=== PATIENT | male | born 1955 | race Caucasian/White ===

== ENCOUNTER 2016-07-31 09:59 | Inpatient (IN) | payer MEDICARE, OTHER ==
[~2016-07-31] VITALS: Ht 167.6 cm; Wt 62.4 kg
[~2016-07-31 09:59] MED LIST: AMOXICILLIN 8751 TAB PO; LANCETS MC; LEVEMIR FLEX100 U/ML SQ; NOVLOG SQ; PRILOTC PO; ZESTRIL 20MG TA20 MG PO; [UNRECOGNIZED DRUG - OTHER] SQ
[2016-08-20] VITALS (11 sets, daily range): BP systolic 106–146; BP diastolic 55–93; PULSE 76–91; TEMP 97.4–98.5
[2016-08-20] MEDS ORDERED: INHALER (12:28)
[2016-08-20 12:56] LABS: CALCIUM 9.5 mg/dL (8.4-10.2); CREATININE, serum 0.54 mg/dL (0.66-1.25); POTASSIUM 4.8 mmol/L (3.4-5.0)
[2016-08-21 02:29] VITALS: BP 155/78; PULSE 98; TEMP 98.5
[2016-08-21 04:39] VITALS: BP 144/69; PULSE 88; TEMP 98.2
[2016-08-21 07:45] LABS: HEMATOCRIT 39.6 % (42.0-52.0); HEMOGLOBIN 13.2 g/dl (13.5-18.0)
[2016-08-21 09:49] VITALS: BP 125/65; PULSE 82; TEMP 97.9
[2016-08-21 13:57] VITALS: BP 148/71; PULSE 78; TEMP 97.6
[2016-08-21 17:51] VITALS: BP 142/72; PULSE 80; TEMP 97.4
[2016-08-21 21:32] VITALS: BP 115/57; PULSE 70; TEMP 97.4
[2016-08-22 01:48] VITALS: BP 125/67; PULSE 83; TEMP 97.2
[2016-08-22 04:16] VITALS: BP 158/81; PULSE 87; TEMP 98
[2016-08-22 11:45] VITALS: BP 142/58; PULSE 78; TEMP 98.5
[2016-08-22 15:11] VITALS: BP 154/88; PULSE 80; TEMP 97.7
[2016-08-22 17:40] VITALS: BP 133/59; PULSE 81; TEMP 98.1
[2016-08-22 22:45] VITALS: BP 135/80; PULSE 80; TEMP 97.8
[2016-08-23 05:52] VITALS: BP 160/79; PULSE 85; TEMP 97.9
[2016-08-23 10:28] VITALS: BP 125/70; PULSE 79; TEMP 98
[2016-08-23 14:00] VITALS: BP 106/51; PULSE 80; TEMP 98.4
[2016-08-23 17:55] VITALS: BP 142/70; PULSE 81; TEMP 97.9
[2016-08-23 22:10] VITALS: BP 138/77; PULSE 80; TEMP 97.4
[2016-08-24] MEDS ORDERED: OXYCONTIN 10MG10 MG PO (06:39)
[2016-08-24] MEDS ORDERED: ASPI325T6 PO (06:39)
[2016-08-24] MEDS ORDERED: ROXICODONE 55 MG/TAB PO (06:39)
[2016-08-24 06:55] VITALS: BP 97/69; PULSE 85; TEMP 97.9
[2017-04-17] MEDS ORDERED: SMZ/TMPDS PO (08:59)
[2017-04-17] MEDS ORDERED: TENORMIN 2525 MG/TAB PO (09:00)
[2017-04-17] MEDS ORDERED: ZESTRIL 20MG TA20 MG PO (09:00)
[2017-04-17] MEDS ORDERED: LYRICA 50MG CAP50 MG PO (09:01)
[2017-04-17] MEDS ORDERED: ASPIRIN E.C. 8181 MG PO (09:01)
[2017-04-17] MEDS ORDERED: NOVOLOG 100U100 U/M1 SQ (09:02)
[2017-04-17] MEDS ORDERED: LEVEMIR100 U/ML SQ (09:03)
[2017-04-17] MEDS ORDERED: ZOCOR 40MG40 MG PO (09:14)
== END 2016-08-24 10:00 | disposition home or self-care (01) | DRG 617 ==
LOC: SURG 08-20 07:30 → INPTSU 08-20 10:28 → SURG 08-20 12:30
PROVIDERS: Nurse Anesthetist, Certified Registered; Orthopaedic Surgery Sports Medicine
PROC: 0Y6H0Z1 Detachment at Right Lower Leg, High, Open Approach (ICD-10-PCS; principal; 2016-08-20 14:30)
DX: E11.621 Type 2 diabetes mellitus with foot ulcer (principal); L97.419 Non-pressure chronic ulcer of right heel and midfoot with unspecified severity; M86.171 Other acute osteomyelitis, right ankle and foot; E46 Unspecified protein-calorie malnutrition; E11.65 Type 2 diabetes mellitus with hyperglycemia; E11.42 Type 2 diabetes mellitus with diabetic polyneuropathy; I12.9 Hypertensive chronic kidney disease with stage 1 through stage 4 chronic kidney disease, or unspecified chronic kidney disease; E11.69 Type 2 diabetes mellitus with other specified complication; E11.22 Type 2 diabetes mellitus with diabetic chronic kidney disease; N18.9 Chronic kidney disease, unspecified; I25.10 Atherosclerotic heart disease of native coronary artery without angina pectoris; Z79.4 Long term (current) use of insulin; F17.210 Nicotine dependence, cigarettes, uncomplicated
CPT/HCPCS: J0690; J1170; J1815; J1885; J2250; J2270; J2405; J2704; J2765; J3010; J7030

== ENCOUNTER → 2016-08-05 | Outpatient (CLI) | payer MEDICARE, OTHER ==
[~2016-08-05] MED LIST changes: +ASPI325T6 PO; +ASPIRIN E.C. 8181 MG PO; +INHALER; +LEVEMIR100 U/ML SQ; +LYRICA 50MG CAP50 MG PO; +NOVOLOG 100U100 U/M1 SQ; +OXYCONTIN 10MG10 MG PO; +ROXICODONE 55 MG/TAB PO; +SMZ/TMPDS PO; +TENORMIN 2525 MG/TAB PO; +ZOCOR 40MG40 MG PO
== END ==
LOC: WCC 13:30
DX: E11.621 Type 2 diabetes mellitus with foot ulcer (principal); L97.514 Non-pressure chronic ulcer of other part of right foot with necrosis of bone; M86.171 Other acute osteomyelitis, right ankle and foot; E11.40 Type 2 diabetes mellitus with diabetic neuropathy, unspecified
CPT/HCPCS: 13919; 18867; 27510; 27517; A6197; A6207; A6209; G0463

== ENCOUNTER 2017-04-19 09:25 | Outpatient (RCR) | payer MEDICARE, OTHER ==
[2017-04-19 10:15] VITALS: BP 131/88; PULSE 74; TEMP 98.3
== END 2017-04-19 11:00 | disposition home or self-care (01) ==
LOC: EUO 09:25
DX: L03.116 Cellulitis of left lower limb (principal)

== ENCOUNTER → 2017-04-22 | Outpatient (CLI) | payer MEDICARE, OTHER | LOC: WCC 04-19 09:39 | DX: L02.416 Cutaneous abscess of left lower limb (principal); Z89.511 Acquired absence of right leg below knee; E11.9 Type 2 diabetes mellitus without complications | CPT/HCPCS: 17717; 27517; A6207; A6212; G0463 ==

== ENCOUNTER → 2017-04-27 | Outpatient (CLI) | payer MEDICARE, OTHER | LOC: WCC 09:51 | DX: Z98.890 Other specified postprocedural states (principal); E11.9 Type 2 diabetes mellitus without complications | CPT/HCPCS: 17717; A6212; G0463 ==

== ENCOUNTER → 2017-04-29 | Outpatient (CLI) | payer MEDICARE, OTHER | LOC: WCC 09:20 | DX: L97.929 Non-pressure chronic ulcer of unspecified part of left lower leg with unspecified severity (principal); I87.2 Venous insufficiency (chronic) (peripheral) | CPT/HCPCS: 17717; A6212; G0463 ==

== ENCOUNTER → 2017-05-06 | Outpatient (CLI) | payer MEDICARE, OTHER | LOC: WCC 09:17 | DX: L97.829 Non-pressure chronic ulcer of other part of left lower leg with unspecified severity (principal); I87.2 Venous insufficiency (chronic) (peripheral); Z89.511 Acquired absence of right leg below knee | CPT/HCPCS: 17717; 27517; A6207; A6212; G0463 ==

== ENCOUNTER → 2017-05-12 | Outpatient (CLI) | payer MEDICARE, OTHER | LOC: WCC 05-11 10:05 | DX: L97.929 Non-pressure chronic ulcer of unspecified part of left lower leg with unspecified severity (principal); I87.2 Venous insufficiency (chronic) (peripheral); Z89.511 Acquired absence of right leg below knee | CPT/HCPCS: 17717; A6212; G0463 ==

== ENCOUNTER → 2017-05-19 | Outpatient (CLI) | payer MEDICARE, OTHER | LOC: WCC 13:37 | DX: L97.829 Non-pressure chronic ulcer of other part of left lower leg with unspecified severity (principal); Z89.511 Acquired absence of right leg below knee ==

== ENCOUNTER → 2017-05-21 | Outpatient (CLI) | payer MEDICARE, OTHER | LOC: WCC 13:25 | DX: I87.2 Venous insufficiency (chronic) (peripheral) (principal); L97.829 Non-pressure chronic ulcer of other part of left lower leg with unspecified severity; Z89.511 Acquired absence of right leg below knee ==

== ENCOUNTER 2017-07-15 07:00 | Day surgery (SDC) | payer MEDICARE, OTHER ==
[~2017-07-15] VITALS: Ht 170.2 cm; Wt 56.3 kg
[2017-07-15] VITALS (12 sets, daily range): BP systolic 156–219; BP diastolic 83–106; PULSE 74–108; TEMP 98.2
[2017-07-15] MEDS ORDERED: PRILOSEC 20MG20 MG PO (07:15)
[2017-07-15 07:40] LABS: HEMATOCRIT 42.4 % (42.0-52.0); HEMOGLOBIN 14.2 g/dl (13.5-18.0); MEAN CELL VOLUME 88 fl (80.0-100.0); MEAN CORPUSCULAR HEMOGLOBIN 30 pg (27.0-31.0); MEAN CORPUSCULAR HGB CONC 34 g/dl (33.0-37.0); MEAN PLATELET VOLUME 9.1 fl (7.4-10.4); PLATELET COUNT 279 K/mm3 (130-400); RED BLOOD COUNT 4.82 M/mm3 (4.20-5.60); WHITE BLOOD COUNT 6.1 K/mm3 (4.8-10.8)
[2017-07-15 07:43] LABS: PROTHROMBIN TIME 11.4 SECONDS (9.7-12.8)
[2017-07-15 07:47] LABS: CALCIUM 8.9 mg/dL (8.4-10.2); CREATININE, serum 0.64 mg/dL (0.66-1.25); POTASSIUM 3.7 mmol/L (3.4-5.0)
[2017-07-15] MEDS ORDERED: TENORMIN 2525 MG/TAB PO (08:01)
[2017-07-15] MEDS ORDERED: ZESTRIL 20MG TA20 MG PO (08:02)
[2017-07-15] MEDS ORDERED: LYRICA 50MG CAP50 MG PO (08:02)
== END 2017-07-15 17:00 | disposition home or self-care (01) ==
LOC: COL.CAR 07:00
PROVIDERS: Nurse Anesthetist, Certified Registered; Radiology Diagnostic Radiology
DX: I70.202 Unspecified atherosclerosis of native arteries of extremities, left leg (principal); E11.9 Type 2 diabetes mellitus without complications; I10 Essential (primary) hypertension; F17.210 Nicotine dependence, cigarettes, uncomplicated; Z89.511 Acquired absence of right leg below knee
CPT/HCPCS: J0360; J1644; J2250; J2405; J2704; J3010; J7030; J7040; Q9967

== ENCOUNTER 2017-08-11 10:56 | Emergency (ER) | payer MEDICARE, OTHER ==
[~2017-08-11] VITALS: Ht 170.2 cm; Wt 59.1 kg
[~2017-08-11 10:56] MED LIST changes: +PRILOSEC 20MG20 MG PO
[2017-08-11 10:57] VITALS: TEMP 97.7
[2017-08-11] MEDS ORDERED: PRINIVIL20 MG PO (11:30)
[2017-08-11 11:53] LABS: BASO # 0.1 (0.0-0.2); BASO % 0.8 % (0.0-2.0); EOS % 0.1 % (0-4.0); GRAN # 7.6 (1.4-6.5); GRAN % 88.1 % (42.2-75.2); HEMOGLOBIN 15.4 g/dl (13.5-18.0); LYMPH # 0.7 (1.2-3.4); LYMPH % 7.7 % (20.0-51.0); MEAN CELL VOLUME 87 fl (80.0-100.0); MEAN CORPUSCULAR HEMOGLOBIN 29 pg (27.0-31.0); MEAN CORPUSCULAR HGB CONC 34 g/dl (33.0-37.0); MEAN PLATELET VOLUME 9.3 fl (7.4-10.4); MONO # 0.2 (0.1-0.6); MONO % 2.8 % (1.7-9.3); PLATELET COUNT 350 K/mm3 (130-400); RED BLOOD COUNT 5.27 M/mm3 (4.20-5.60); REDCELL DISTRIBUTION WIDTH-CV 13.6 % (11.5-14.5)
[2017-08-11 12:01] LABS: ALANINE AMINOTRANSFERASE 19 U/L (21-72); ALBUMIN 4.4 gm/dL (3.5-5.0); ALKALINE PHOSPHATASE 102 U/L (50-136); ANION GAP 14 mmol/L (7-16); AST,SGOT 18 U/L (15-37); BILIRUBIN,TOTAL 0.6 mg/dL (0.0-1.0); BLOOD UREA NITROGEN 14 mg/dL (9-20); CALCIUM 9.3 mg/dL (8.4-10.2); CARBON DIOXIDE 24 mmol/L (22-30); CHLORIDE 100 mmol/L (98-107); CREATININE, serum 0.53 mg/dL (0.66-1.25); GLUCOSE 286 mg/dL (74-106); POTASSIUM 3.5 mmol/L (3.4-5.0); SODIUM 138 mmol/L (137-145); TOTAL PROTEIN 7.7 gm/dL (6.4-8.2)
[2017-08-11 12:02] LABS: C-REACTIVE PROTEIN < 0.5 mg/dL (0.0-0.9)
[2017-08-11] MEDS ORDERED: LEVEMIR100 U/ML SQ (12:02)
[2017-08-11 12:10] LABS: TROPONIN-I < 0.012 ng/mL (0.000-0.034)
[2017-08-11 12:27] LABS: COLLECTION METHOD CLEAN CATCH
[2017-08-11 12:36] LABS: MUCOUS Present /lpf; PH 8 (5-8); SQUAMOUS EPITHELIAL None Seen /hpf; URINE APPEARANCE Hazy; URINE BACTERIA Rare /hpf; URINE BILIRUBIN Negative (NEGATIVE); URINE BLOOD Negative (NEGATIVE); URINE COLOR Yellow; URINE GLUCOSE 3+ (NEGATIVE); URINE KETONE 2+ (NEGATIVE); URINE LEUKOCYTE ESTERASE Negative (NEGATIVE); URINE NITRATE Negative (NEGATIVE); URINE PROTEIN(semi-quant) 3+ (NEGATIVE); URINE RBC 20-50 /hpf; URINE UROBILINOGEN Negative (NEGATIVE)
[2017-08-11 15:45] VITALS: BP 180/101; PULSE 105
== END 2017-08-11 15:47 | disposition home or self-care (01) ==
LOC: COL.ER 10:56
PROVIDERS: Physician Assistant
DX: R11.10 Vomiting, unspecified (principal); R10.9 Unspecified abdominal pain; I25.10 Atherosclerotic heart disease of native coronary artery without angina pectoris; I25.2 Old myocardial infarction; I10 Essential (primary) hypertension; E11.40 Type 2 diabetes mellitus with diabetic neuropathy, unspecified; G89.29 Other chronic pain; D64.9 Anemia, unspecified; F17.210 Nicotine dependence, cigarettes, uncomplicated; Z87.442 Personal history of urinary calculi; Z79.4 Long term (current) use of insulin
CPT/HCPCS: J2270; J2405; J7030

== ENCOUNTER 2018-01-03 14:12 | Emergency (ER) | payer MEDICARE, OTHER ==
[~2018-01-03] VITALS: Ht 170.2 cm; Wt 58.6 kg
[~2018-01-03 14:12] MED LIST changes: +PRINIVIL20 MG PO
[2018-01-03 14:22] VITALS: TEMP 97.7
[2018-01-03 15:17] LABS: BASO # 0.1 (0.0-0.2); BASO % 0.5 % (0.0-2.0); GRAN # 9.9 (1.4-6.5); GRAN % 91.2 % (42.2-75.2); HEMATOCRIT 45.8 % (42.0-52.0); HEMOGLOBIN 15.8 g/dl (13.5-18.0); LYMPH # 0.6 (1.2-3.4); LYMPH % 5.4 % (20.0-51.0); MEAN CELL VOLUME 85 fl (80.0-100.0); MEAN CORPUSCULAR HEMOGLOBIN 29 pg (27.0-31.0); MEAN CORPUSCULAR HGB CONC 35 g/dl (33.0-37.0); MEAN PLATELET VOLUME 9.2 fl (7.4-10.4); MONO # 0.3 (0.1-0.6); MONO % 2.6 % (1.7-9.3); PLATELET COUNT 318 K/mm3 (130-400); RED BLOOD COUNT 5.38 M/mm3 (4.20-5.60); REDCELL DISTRIBUTION WIDTH-CV 13.2 % (11.5-14.5)
[2018-01-03 15:19] LABS: PROTHROMBIN TIME 10.8 SECONDS (9.7-12.8)
[2018-01-03 15:24] LABS: ALANINE AMINOTRANSFERASE 14 U/L (21-72); ALBUMIN 3.9 gm/dL (3.5-5.0); ALKALINE PHOSPHATASE 101 U/L (50-136); AMYLASE 125 U/L (30-110); ANION GAP 16 mmol/L (7-16); AST,SGOT 19 U/L (15-37); BILIRUBIN,TOTAL 0.9 mg/dL (0.0-1.0); BLOOD UREA NITROGEN 14 mg/dL (9-20); CALCIUM 9.1 mg/dL (8.4-10.2); CARBON DIOXIDE 25 mmol/L (22-30); CHLORIDE 99 mmol/L (98-107); CREATININE, serum 0.54 mg/dL (0.66-1.25); GLUCOSE 283 mg/dL (74-106); LIPASE 295 U/L (23-300); POTASSIUM 3.6 mmol/L (3.4-5.0); SODIUM 140 mmol/L (137-145); TOTAL PROTEIN 7.6 gm/dL (6.4-8.2)
[2018-01-03 15:35] LABS: TROPONIN-I < 0.012 ng/mL (0.000-0.034)
[2018-01-03 17:17] LABS: COLLECTION METHOD CLEAN CATCH
[2018-01-03 17:40] LABS: MUCOUS Present /lpf; PH 8 (5-8); SQUAMOUS EPITHELIAL None Seen /hpf; URINE APPEARANCE Clear; URINE BACTERIA None Seen /hpf; URINE BILIRUBIN Negative (NEGATIVE); URINE BLOOD 1+ (NEGATIVE); URINE COLOR Yellow; URINE GLUCOSE 3+ (NEGATIVE); URINE KETONE 1+ (NEGATIVE); URINE LEUKOCYTE ESTERASE Negative (NEGATIVE); URINE NITRATE Negative (NEGATIVE); URINE PROTEIN(semi-quant) 3+ (NEGATIVE); URINE UROBILINOGEN Negative (NEGATIVE)
[2018-01-03 18:20] VITALS: BP 165/90; PULSE 88
== END 2018-01-03 18:44 | disposition home or self-care (01) ==
LOC: COL.ER 14:12
PROVIDERS: Emergency Medicine
DX: E11.43 Type 2 diabetes mellitus with diabetic autonomic (poly)neuropathy (principal); K31.84 Gastroparesis; G43.A0 Cyclical vomiting, in migraine, not intractable; I10 Essential (primary) hypertension; Z79.4 Long term (current) use of insulin
CPT/HCPCS: J2270; J2765; J7030

== ENCOUNTER 2018-02-22 08:53 | Emergency (ER) | payer MEDICARE ==
[~2018-02-22] VITALS: Ht 170.2 cm; Wt 56.8 kg
[2018-02-22 09:00] VITALS: TEMP 97.7
[2018-02-22 09:19] LABS: BASO # 0.1 (0.0-0.2); BASO % 0.7 % (0.0-2.0); EOS # 0.1 (0.0-0.7); EOS % 1.3 % (0-4.0); GRAN # 7.7 (1.4-6.5); GRAN % 77.6 % (42.2-75.2); HEMATOCRIT 48.2 % (42.0-52.0); HEMOGLOBIN 16.1 g/dl (13.5-18.0); LYMPH # 1.3 (1.2-3.4); LYMPH % 13.4 % (20.0-51.0); MEAN CELL VOLUME 87 fl (80.0-100.0); MEAN CORPUSCULAR HEMOGLOBIN 29 pg (27.0-31.0); MEAN CORPUSCULAR HGB CONC 33 g/dl (33.0-37.0); MEAN PLATELET VOLUME 8.8 fl (7.4-10.4); MONO # 0.7 (0.1-0.6); MONO % 6.8 % (1.7-9.3); PLATELET COUNT 345 K/mm3 (130-400); RED BLOOD COUNT 5.52 M/mm3 (4.20-5.60); REDCELL DISTRIBUTION WIDTH-CV 13.7 % (11.5-14.5)
[2018-02-22] MEDS ORDERED: PROBIOTIC ACID1 EAC3 PO (09:29)
[2018-02-22] MEDS ORDERED: BP MED (09:29)
[2018-02-22 09:33] LABS: ALANINE AMINOTRANSFERASE 16 U/L (21-72); ALBUMIN 4.5 gm/dL (3.5-5.0); ALKALINE PHOSPHATASE 101 U/L (50-136); ANION GAP 12 mmol/L (7-16); AST,SGOT 24 U/L (15-37); BILIRUBIN,TOTAL 0.7 mg/dL (0.0-1.0); BLOOD UREA NITROGEN 25 mg/dL (9-20); CALCIUM 9.5 mg/dL (8.4-10.2); CARBON DIOXIDE 27 mmol/L (22-30); CHLORIDE 99 mmol/L (98-107); CREATININE, serum 0.85 mg/dL (0.66-1.25); GLUCOSE 212 mg/dL (74-106); LIPASE 85 U/L (23-300); POTASSIUM 3.7 mmol/L (3.4-5.0); SODIUM 139 mmol/L (137-145); TOTAL PROTEIN 7.9 gm/dL (6.4-8.2)
[2018-02-22 09:39] LABS: C-REACTIVE PROTEIN < 0.5 mg/dL (0.0-0.9)
[2018-02-22 09:41] LABS: TROPONIN-I < 0.012 ng/mL (0.000-0.034)
[2018-02-22] MEDS ORDERED: ZOFRAN ODT4 MG PO (11:19)
[2018-02-22 11:32] VITALS: BP 213/110; PULSE 90
== END 2018-02-22 11:35 | disposition home or self-care (01) ==
LOC: COL.ER 08:53
PROVIDERS: Physician Assistant
DX: E11.43 Type 2 diabetes mellitus with diabetic autonomic (poly)neuropathy (principal); K31.84 Gastroparesis; I10 Essential (primary) hypertension; I25.2 Old myocardial infarction; F17.210 Nicotine dependence, cigarettes, uncomplicated; F12.90 Cannabis use, unspecified, uncomplicated; Z79.4 Long term (current) use of insulin
CPT/HCPCS: C9113; J2270; J2405; J2765; J7030

== ENCOUNTER 2018-09-07 17:22 | Emergency (ER) | payer MEDICARE ==
[~2018-09-07] VITALS: Ht 170.2 cm; Wt 56.8 kg
[~2018-09-07 17:22] MED LIST changes: +BP MED; +PROBIOTIC ACID1 EAC3 PO; +ZOFRAN ODT4 MG PO
[2018-09-07 17:28] VITALS: TEMP 97.8
[2018-09-07 18:18] LABS: BASO # 0.1 (0.0-0.2); BASO % 0.4 % (0.0-2.0); GRAN # 12.6 (1.4-6.5); GRAN % 91.8 % (42.2-75.2); HEMATOCRIT 46.6 % (42.0-52.0); HEMOGLOBIN 15.8 g/dl (13.5-18.0); LYMPH # 0.6 (1.2-3.4); LYMPH % 4.4 % (20.0-51.0); MEAN CELL VOLUME 86 fl (80.0-100.0); MEAN CORPUSCULAR HEMOGLOBIN 29 pg (27.0-31.0); MEAN CORPUSCULAR HGB CONC 34 g/dl (33.0-37.0); MEAN PLATELET VOLUME 9.5 fl (7.4-10.4); MONO # 0.4 (0.1-0.6); MONO % 3.1 % (1.7-9.3); PLATELET COUNT 336 K/mm3 (130-400); RED BLOOD COUNT 5.41 M/mm3 (4.20-5.60); REDCELL DISTRIBUTION WIDTH-CV 13.5 % (11.5-14.5)
[2018-09-07 18:29] LABS: ALANINE AMINOTRANSFERASE 7 U/L (21-72); ALBUMIN 4.2 gm/dL (3.5-5.0); ALKALINE PHOSPHATASE 113 U/L (50-136); ANION GAP 14 mmol/L (7-16); AST,SGOT 25 U/L (15-37); BLOOD UREA NITROGEN 11 mg/dL (9-20); CALCIUM 9.1 mg/dL (8.4-10.2); CARBON DIOXIDE 22 mmol/L (22-30); CHLORIDE 99 mmol/L (98-107); CREATININE, serum 0.65 mg/dL (0.66-1.25); GLUCOSE 336 mg/dL (74-106); LIPASE 157 U/L (23-300); POTASSIUM 3.7 mmol/L (3.4-5.0); SODIUM 135 mmol/L (137-145); TOTAL PROTEIN 7.5 gm/dL (6.4-8.2)
[2018-09-07 18:30] LABS: C-REACTIVE PROTEIN < 0.5 mg/dL (0.0-0.9)
[2018-09-07 18:40] LABS: TROPONIN-I < 0.012 ng/mL (0.000-0.035)
[2018-09-07 20:06] LABS: COLLECTION METHOD CLEAN CATCH
[2018-09-07 20:23] LABS: MUCOUS Present /lpf; PH 7 (5-8); SQUAMOUS EPITHELIAL None Seen /hpf; URINE APPEARANCE Clear; URINE BACTERIA None Seen /hpf; URINE BILIRUBIN Negative (NEGATIVE); URINE BLOOD 2+ (NEGATIVE); URINE COLOR Yellow; URINE GLUCOSE 3+ (NEGATIVE); URINE KETONE 1+ (NEGATIVE); URINE LEUKOCYTE ESTERASE Negative (NEGATIVE); URINE NITRATE Negative (NEGATIVE); URINE PROTEIN(semi-quant) 3+ (NEGATIVE); URINE RBC 20-50 /hpf; URINE UROBILINOGEN Negative (NEGATIVE)
[2018-09-07 21:27] VITALS: BP 138/64; PULSE 93
== END 2018-09-07 22:18 | disposition home or self-care (01) ==
LOC: COL.ER 17:22
PROVIDERS: Emergency Medicine
DX: E11.43 Type 2 diabetes mellitus with diabetic autonomic (poly)neuropathy (principal); K31.84 Gastroparesis; I10 Essential (primary) hypertension; I25.10 Atherosclerotic heart disease of native coronary artery without angina pectoris; F17.210 Nicotine dependence, cigarettes, uncomplicated; Z79.4 Long term (current) use of insulin; Z89.511 Acquired absence of right leg below knee
CPT/HCPCS: J1815; J2270; J2405; J2765; J7030; Q9967

== ENCOUNTER 2018-10-19 10:12 | Inpatient (IN) | payer MEDICARE ==
[~2018-10-19] VITALS: Ht 170.2 cm; Wt 63.2 kg
[2018-10-19] VITALS (639 sets, daily range): BP systolic 102–154; BP diastolic 64–86; PULSE 86–100; TEMP 97.4–98.7; O2SAT 68–100
[2018-10-19 11:09] LABS: HEMATOCRIT 45.8 % (42.0-52.0); HEMOGLOBIN 15.5 g/dl (13.5-18.0); MEAN CELL VOLUME 86 fl (80.0-100.0); MEAN CORPUSCULAR HEMOGLOBIN 29 pg (27.0-31.0); MEAN CORPUSCULAR HGB CONC 34 g/dl (33.0-37.0); PLATELET COUNT 320 K/mm3 (130-400); RED BLOOD COUNT 5.32 M/mm3 (4.20-5.60); REDCELL DISTRIBUTION WIDTH-CV 13.6 % (11.5-14.5)
[2018-10-19 11:17] LABS: ALBUMIN 4.2 gm/dL (3.5-5.0); BILIRUBIN,TOTAL 0.6 mg/dL (0.0-1.0); CALCIUM 9.1 mg/dL (8.4-10.2); CREATININE, serum 0.73 mg/dL (0.66-1.25); MAGNESIUM 1.7 mg/dL (1.6-2.3); PHOSPHOROUS 3.4 mg/dL (2.5-4.5); POTASSIUM 3.7 mmol/L (3.4-5.0); TOTAL PROTEIN 7.6 gm/dL (6.4-8.2)
[2018-10-19 11:34] LABS: BAND 19 % (0-10); LYMPHOCYTE 2 % (20.0-51.0); NEUTROPHILS 77 % (42.0-75.2); PLATELET ESTIMATE NORMAL (NORMAL)
[2018-10-19 11:37] LABS: TROPONIN-I 0.067 ng/mL (0.000-0.035)
[2018-10-19 11:46] LABS: TSH w REFLEX 1.83 uIU/mL (0.465-4.680)
--- NOTE | 2018-10-19 13:20 | NUR ---
Patient admitted to ICU#5 via stretcher from ER. Assessment complete, patient denies pain at this time, call light within reach.
--- NOTE | 2018-10-19 19:30 | NUR ---
Bedside report received from HERNAN Faith.
--- NOTE | 2018-10-19 20:00 | NUR ---
Bedside report given to HERNAN Huston.
--- NOTE | 2018-10-19 20:00 | NUR ---
Assessment complete. Patient is resting in bed at this time. During assessment found IV in right hand had been pulled out and the catheter was bent on the skin under the dressing. Attempted new IV at multiple sites, 4 attempts. HERNAN Willis placed IV in left hand. Patient tolerated well. Assessment also revealed a small amount of +1 pitting edema around the foot/ankle of the left leg. Patient has complaints of 5/10 pain that is aching and generalized, but mostly in his legs. Patient does not want medication for it at this time. Says this is a chronic issue, but if it gets worse says he may need something for it. Let patient know to call me should his pain get worse. Confirmed understanding. Vitals are stable and WNL. No further needs at this time. WIll continue to monitor. Call light within reach.
[2018-10-20] VITALS (1360 sets, daily range): BP systolic 152–190; BP diastolic 76–96; PULSE 57–67; TEMP 97.6–98.6; O2SAT 51–100
--- NOTE | 2018-10-20 | NUR ---
Patient resting in bed watching tv. Patient states that his pain remains the same at 5/10 and generalized. Still does not want medication at this time. Patient's vitals remain stable. Patient has no further needs at this time. Will continue to monitor. Call light within reach.
--- NOTE | 2018-10-20 01:00 | NUR ---
Patient complaining of increased pain at this time. Requesting medication for it "before it gets worse". Morphine to be provided.
--- NOTE | 2018-10-20 01:30 | NUR ---
Rechecked patient's pain level after morphine was given. Patient states "I'm good. I got nothin right now. No pain. I'm feeling good and relaxed." No further needs. Will continue to monitor.
--- NOTE | 2018-10-20 04:00 | NUR ---
Patient awake and resting in bed. Patient rates pain 0/10, but says that he has some general soreness from laying in bed. He will not rate it. Says otherwise he feels good. Vitals remain stable with BP in 150-160's systolic. No further needs at this time. Will continue to monitor. Call light within reach.
[2018-10-20 05:50] LABS: BASO % 0.6 % (0.0-2.0); EOS # 0.1 (0.0-0.7); EOS % 1.4 % (0-4.0); GRAN # 3.2 (1.4-6.5); GRAN % 61.6 % (42.2-75.2); HEMATOCRIT 41.1 % (42.0-52.0); LYMPH # 1.1 (1.2-3.4); LYMPH % 20.7 % (20.0-51.0); MEAN CELL VOLUME 89 fl (80.0-100.0); MEAN CORPUSCULAR HEMOGLOBIN 29 pg (27.0-31.0); MEAN CORPUSCULAR HGB CONC 33 g/dl (33.0-37.0); MEAN PLATELET VOLUME 8.8 fl (7.4-10.4); MONO # 0.8 (0.1-0.6); MONO % 15.5 % (1.7-9.3); PLATELET COUNT 264 K/mm3 (130-400); RED BLOOD COUNT 4.63 M/mm3 (4.20-5.60)
[2018-10-20 05:55] LABS: HEMOGLOBIN 13.4 g/dl (13.5-18.0)
[2018-10-20 06:06] LABS: CALCIUM 7.9 mg/dL (8.4-10.2); CHOLESTEROL RISK RATIO 3.6; POTASSIUM 3.9 mmol/L (3.4-5.0)
[2018-10-20 06:20] LABS: TROPONIN-I 0.133 ng/mL (0.000-0.035)
--- NOTE | 2018-10-20 07:37 | NUR ---
Bedside report given to HERNAN Anderson
--- NOTE | 2018-10-20 07:40 | NUR ---
Report received from HERNAN Huston. Pt had sips of decaf coffee before day shift came in. Pt NPO at this time. Waiting for Dr to see pt to discuss plan of care.
--- NOTE | 2018-10-20 07:51 | NUR ---
IHSAN SCAN STRESS TEST CANCELLED PER PROTOCOL PATIENT HAD CAFFIENE THIS AM, DR LOVELACE AND DR MARQUEZ NOTIFIED OF CAFFIENE AND INCREASED TROPONINS OVERNIGHT.
--- NOTE | 2018-10-20 08:00 | NUR ---
Assessment completed. Pt awake, in bed. States has has some neuropathy pain on his left leg. Unable to give me a number on the pain scale. Discussed NPO status until Dr sees pt today and monitoring BP. Pt verbalizes understanding.
--- NOTE | 2018-10-20 08:30 | NUR ---
HERNAN Mendosa with Dr Nicole, at bedside. Updated on pt status. Echo completed and waiting for results. HERNAN Mendosa will up date and let me know the plan of care for today.
--- NOTE | 2018-10-20 10:30 | NUR ---
KODI Sanz with Dr Upton notified of SBP 190s. Will talk with Dr Upton and let me know of any changes in orders.
--- NOTE | 2018-10-20 13:30 | NUR ---
Anesthesia at bedside for JORI and cardioversion. Suction and oxymask set up. Crash cart placed in room and pt connected to defibrillator. Dr Luna at bedside. time out completed with Anesthesia and Dr luna for JORI and cardioversion.
--- NOTE | 2018-10-20 13:50 | NUR ---
JORI completed. Pt cardioverted w2ith 100J at 1347 and again with 200J at 1349. HR A paced on monitor.
--- NOTE | 2018-10-20 14:42 | NUR ---
SW attended clinical rounds and met with patient about discharge. Patient reports he plans to return home after discharge. Patient lives with his in [place]. He uses either the [facility] or [facility] for primary care. Patient obtains prescriptions from [facility] or the [place]. [facility] but does not currently have services. Patient reports if he needs home health services, he can call the [facility] to arrange those. Patient reports he uses a manual and motorized wheelchair for mobility but no other DME is reported. Patient does not have a DPOA but is interested in completing one. He reports his son will be here later today and he would like to speak with him about DPOA before signing. SW will return when patient is ready to sign. SW does not anticipate any discharge needs but will continue to follow.
--- NOTE | 2018-10-20 15:12 | NUR ---
HERNAN Mendosa with DR Nicole states okay with pt to have clear liquids tomorrow morning. No order for cardiac cath at this time.
--- NOTE | 2018-10-20 16:30 | NUR ---
Pt in bed, taking a nap. Will monitor.
--- NOTE | 2018-10-20 19:35 | NUR ---
Report given to date night sitter RN.
[2018-10-21] VITALS (950 sets, daily range): BP systolic 157–1451; BP diastolic 78–83; PULSE 63–81; TEMP 98.1–98.8; O2SAT 94–100
[2018-10-21 06:21] LABS: BASO % 0.7 % (0.0-2.0); EOS # 0.1 (0.0-0.7); EOS % 1.5 % (0-4.0); GRAN # 4.2 (1.4-6.5); GRAN % 71.2 % (42.2-75.2); HEMATOCRIT 41.3 % (42.0-52.0); HEMOGLOBIN 13.8 g/dl (13.5-18.0); LYMPH # 0.8 (1.2-3.4); LYMPH % 14.2 % (20.0-51.0); MEAN CELL VOLUME 87 fl (80.0-100.0); MEAN CORPUSCULAR HEMOGLOBIN 29 pg (27.0-31.0); MEAN CORPUSCULAR HGB CONC 33 g/dl (33.0-37.0); MONO # 0.7 (0.1-0.6); MONO % 12.2 % (1.7-9.3); PLATELET COUNT 255 K/mm3 (130-400); RED BLOOD COUNT 4.74 M/mm3 (4.20-5.60); REDCELL DISTRIBUTION WIDTH-CV 13.7 % (11.5-14.5)
[2018-10-21 06:26] LABS: CREATININE, serum 0.72 mg/dL (0.66-1.25); POTASSIUM 3.4 mmol/L (3.4-5.0)
--- NOTE | 2018-10-21 07:30 | NUR ---
Bedside report received from HERNAN Soares. Care of patient assumed at this time.
--- NOTE | 2018-10-21 08:45 | NUR ---
Patient assessment complete. Patient resting in bed, denies chest pain or shortness of breath. Patient's left leg is cool and pulses are 1+. Patient states that is a typical finding. Patient remains in contact precautions. Will continue to monitor.
--- NOTE | 2018-10-21 10:36 | NUR ---
SW followed up with patient and son, Hudson, about completing a DPOA. Patient appointed his son. Patient signed and SW and nurse witnessed signature. Patient was given the original and 4 extra copies. SW also placed a copy on the chart. SW also mentioned that PT might come meet with him and give recommendations. SW asked nurse if PT can be consulted.
--- NOTE | 2018-10-21 12:00 | NUR ---
Patient resting. No acute changes. Blood pressure remains stable. Will continue to monitor.
[2018-10-21] MEDS ORDERED: NORVASC 10MG10 MG PO (12:42)
[2018-10-21] MEDS ORDERED: COREG12.5 MG PO (12:42)
[2018-10-21] MEDS ORDERED: ASPIRIN E.C. 8181 MG PO (12:42)
[2018-10-21] MEDS ORDERED: LIPITOR 40MG TA40 MG PO (12:42)
[2018-10-21] MEDS ORDERED: ULTRAM 50MG TAB50 MG PO (12:44)
[2018-10-21] MEDS ORDERED: NEURONTIN100 MG/CAP PO (12:50)
--- NOTE | 2018-10-21 16:05 | NUR ---
All discharge paperwork discussed with patient and son. Patient verbalizes understanding and agreement to all instructions. Patient wheeled to exit in own wheelchair. Son accompanies patient. All patient belongings accompany patient to exit.
== END 2018-10-21 15:57 | disposition home or self-care (01) | DRG 281 ==
LOC: COL.ER 10:12 → ICU 11:56
PROVIDERS: Emergency Medicine; Physician Assistant; ADMIT Family Medicine
DX: I16.1 Hypertensive emergency (principal); I21.4 Non-ST elevation (NSTEMI) myocardial infarction; E87.2 Acidosis; Z66 Do not resuscitate; I10 Essential (primary) hypertension; E11.40 Type 2 diabetes mellitus with diabetic neuropathy, unspecified; I25.10 Atherosclerotic heart disease of native coronary artery without angina pectoris; E11.43 Type 2 diabetes mellitus with diabetic autonomic (poly)neuropathy; K31.84 Gastroparesis; Z79.4 Long term (current) use of insulin; I73.9 Peripheral vascular disease, unspecified; F17.210 Nicotine dependence, cigarettes, uncomplicated; F12.10 Cannabis abuse, uncomplicated; E11.65 Type 2 diabetes mellitus with hyperglycemia; Z89.511 Acquired absence of right leg below knee; E87.6 Hypokalemia
CPT/HCPCS: 99223-AI; 99233-AI; 99239; J0360; J1650; J1815; J2270; J2405; J7030; J7050

== ENCOUNTER 2019-04-23 15:53 | Inpatient (IN) | payer MEDICARE ==
[2019-04-23] VITALS (350 sets, daily range): BP systolic 156–171; BP diastolic 81–86; PULSE 101–107; TEMP 98–98.3; O2SAT 82–100
[~2019-04-23] VITALS: Ht 175.3 cm; Wt 69.8 kg
[~2019-04-23 15:53] MED LIST changes: +COREG12.5 MG PO; +LIPITOR 40MG TA40 MG PO; +NEURONTIN100 MG/CAP PO; +NORVASC 10MG10 MG PO; +ULTRAM 50MG TAB50 MG PO
[2019-04-23 16:30] LABS: BASO # 0.1 (0.0-0.2); BASO % 0.7 % (0.0-2.0); EOS # 0.1 (0.0-0.7); EOS % 0.4 % (0-4.0); GRAN # 11.7 (1.4-6.5); GRAN % 86.4 % (42.2-75.2); HEMATOCRIT 43.1 % (42.0-52.0); HEMOGLOBIN 14.6 g/dl (13.5-18.0); LYMPH % 7.2 % (20.0-51.0); MEAN CELL VOLUME 87 fl (80.0-100.0); MEAN CORPUSCULAR HEMOGLOBIN 29 pg (27.0-31.0); MEAN CORPUSCULAR HGB CONC 34 g/dl (33.0-37.0); MEAN PLATELET VOLUME 9.3 fl (7.4-10.4); MONO # 0.7 (0.1-0.6); MONO % 4.9 % (1.7-9.3); PLATELET COUNT 318 K/mm3 (130-400); RED BLOOD COUNT 4.96 M/mm3 (4.20-5.60); REDCELL DISTRIBUTION WIDTH-CV 13.9 % (11.5-14.5)
[2019-04-23 16:40] LABS: INR 0.9 (0.8-3.0); PROTHROMBIN TIME 10.2 SECONDS (9.7-12.8)
[2019-04-23 16:43] LABS: ARTERIAL BLD GAS O2 SATURATION 95.1 % (92-100); ARTERIAL BLD GAS TCO2 CT 26.4; ARTERIAL BLOOD GAS BASE EXCESS 2.7 (-2-2); ARTERIAL BLOOD GAS HCO3 25.3 meq/L (22-26); ARTERIAL BLOOD GAS PCO2 33.1 mmHg (35-45)
[2019-04-23 16:49] LABS: ALANINE AMINOTRANSFERASE < 6 U/L (21-72); ALBUMIN 4.7 gm/dL (3.5-5.0); ALKALINE PHOSPHATASE 117 U/L (50-136); ANION GAP 13 mmol/L (7-16); AST,SGOT 28 U/L (15-37); BILIRUBIN,TOTAL 0.7 mg/dL (0.0-1.0); BLOOD UREA NITROGEN 20 mg/dL (9-20); C-REACTIVE PROTEIN < 0.5 mg/dL (0.0-0.9); CARBON DIOXIDE 27 mmol/L (22-30); CHLORIDE 102 mmol/L (98-107); CREATININE, serum 0.83 (0.66-1.25); GLUCOSE 206 mg/dL (74-106); LIPASE 168 U/L (23-300); POTASSIUM 3.5 mmol/L (3.4-5.0); SODIUM 142 mmol/L (137-145); TOTAL PROTEIN 8.2 gm/dL (6.4-8.2)
[2019-04-23 16:51] LABS: ACETONE,SERUM NEGATIVE
[2019-04-23 16:58] LABS: TROPONIN-I < 0.012 ng/mL (0.000-0.035)
--- NOTE | 2019-04-23 18:45 | NUR ---
Pt on 2.5 mg/hr of cardene per ER.
--- NOTE | 2019-04-23 18:54 | NUR ---
Report received from Edith BECERRA in ER. Pt brought by cart to ICU 1 and moved to bed. Pt on cardene drip at 2.5 mg/hr. Assessment complete. Pt unable to give med history at this time. Dr Esquivel in to see pt. Report given to Lazaro BECERRA and care transfered.
--- NOTE | 2019-04-23 19:33 | NUR ---
Patient assessment completed and charted at this time, please see documentation for details. Patient resting in bed, call light within reach, urinal at bedside. All question and concerns addressed at this time, will continue to monitor.
[2019-04-23 22:37] LABS: COLLECTION METHOD CLEAN CATCH
[2019-04-23 22:43] LABS: MUCOUS Present /lpf; PH 8 (5-8); SQUAMOUS EPITHELIAL None Seen /hpf; URINE APPEARANCE Clear; URINE BACTERIA None Seen /hpf; URINE BILIRUBIN Negative (NEGATIVE); URINE BLOOD 1+ (NEGATIVE); URINE COLOR Yellow; URINE GLUCOSE 2+ (NEGATIVE); URINE KETONE Negative (NEGATIVE); URINE LEUKOCYTE ESTERASE Negative (NEGATIVE); URINE NITRATE Negative (NEGATIVE); URINE PROTEIN(semi-quant) 3+ (NEGATIVE); URINE RBC 20-50 /hpf; URINE UROBILINOGEN Negative (NEGATIVE)
--- NOTE | 2019-04-23 23:15 | NUR ---
Patient refused insulin this evening. Blood sugar was 171 this evening, stated he would not take at home, as it would cause hypoglycemia and would be good until the morning. Agreeable with this plan, will continue to monitor.
[2019-04-24] VITALS (252 sets, daily range): BP systolic 129–167; BP diastolic 62–87; PULSE 64–77; TEMP 97.7–98.6; O2SAT 88–100
[2019-04-24 06:04] LABS: BASO # 0.1 (0.0-0.2); BASO % 0.5 % (0.0-2.0); EOS # 0.1 (0.0-0.7); EOS % 0.7 % (0-4.0); GRAN % 72.9 % (42.2-75.2); HEMATOCRIT 37.6 % (42.0-52.0); HEMOGLOBIN 12.4 g/dl (13.5-18.0); LYMPH # 1.8 (1.2-3.4); LYMPH % 14.8 % (20.0-51.0); MEAN CELL VOLUME 89 fl (80.0-100.0); MEAN CORPUSCULAR HEMOGLOBIN 29 pg (27.0-31.0); MEAN CORPUSCULAR HGB CONC 33 g/dl (33.0-37.0); MEAN PLATELET VOLUME 9.4 fl (7.4-10.4); MONO # 1.3 (0.1-0.6); MONO % 10.7 % (1.7-9.3); PLATELET COUNT 265 K/mm3 (130-400); RED BLOOD COUNT 4.24 M/mm3 (4.20-5.60); REDCELL DISTRIBUTION WIDTH-CV 14.4 % (11.5-14.5)
[2019-04-24 06:13] LABS: ALBUMIN 3.4 gm/dL (3.5-5.0); BILIRUBIN,TOTAL 0.4 mg/dL (0.0-1.0); CALCIUM 8.3 mg/dL (8.4-10.2); CREATININE, serum 0.93 (0.66-1.25); POTASSIUM 3.3 mmol/L (3.4-5.0); TOTAL PROTEIN 6.3 gm/dL (6.4-8.2)
--- NOTE | 2019-04-24 07:15 | NUR ---
Report received from HERNAN Willis.
--- NOTE | 2019-04-24 08:00 | NUR ---
Assessment completed. Pt in bed, watching tv. Breakfast ordered. Denies any pain. VSS. Remains off of Cardene gtt. Denies any N/V. Discussed plan of care r/t BP medications. Verbalized understanding. Urinal at bedside. CAll light in reach.
[2019-04-24] MEDS ORDERED: PROTONIX20 MG PO (10:42)
[2019-04-24] MEDS ORDERED: CEPHALEXIN500 M1 PO (10:43)
[2019-04-24] MEDS ORDERED: PLAVIX 75MG TAB75 MG PO (10:43)
--- NOTE | 2019-04-24 14:00 | NUR ---
Phone report given to [facility] RN. Pt transferred to room 311 via wheelchair. Pt transferred to medical bed x1 assist. Call light in reach. Personal items within reach. Updated [facility] RN on pt status.
--- NOTE | 2019-04-24 14:15 | NUR ---
Pt arrived to floor at this time via w/c with ICU staff. Pt doing well, resting in bed, denies needs, will continue to monitor.
--- NOTE | 2019-04-24 18:41 | NUR ---
Pt doing well, resting in bed, requesting home medications for pain but it is marijuana so not legal. Pt understands this. Resting in bed, supper delivered, will give pain meds when due with film processing shift supervisor. Will give bedside shift report to nightshift nurse who will resume care.
--- NOTE | 2019-04-24 20:55 | NUR ---
Patient aware of the Cardiac Cath planned for tomorrow and that he is to not eat or drink after midnight. Monitoring vitals. Stable now. Denies pain at this time. Requesting a pillow to elevate his left heel off the bed. Gauze bandage over wound on Left lateral 5th toe. Dressing not removed at this time.
[2019-04-24 21:07] LABS: INR 0.9 (0.8-3.0); PROTHROMBIN TIME 10.3 SECONDS (9.7-12.8)
[2019-04-24 21:08] LABS: HEMOGLOBIN 11.6 g/dl (13.5-18.0); MEAN CELL VOLUME 89 fl (80.0-100.0); MEAN CORPUSCULAR HEMOGLOBIN 29 pg (27.0-31.0); MEAN CORPUSCULAR HGB CONC 33 g/dl (33.0-37.0); MEAN PLATELET VOLUME 9.6 fl (7.4-10.4); PLATELET COUNT 241 K/mm3 (130-400)
[2019-04-24 21:10] LABS: HEMATOCRIT 35.5 % (42.0-52.0); PARTIAL THROMBOPLASTIN TIME 21.2 SECONDS (26.0-37.0)
[2019-04-24 21:16] LABS: CALCIUM 8.2 mg/dL (8.4-10.2); CREATININE, serum 1.09 (0.66-1.25); POTASSIUM 4.2 mmol/L (3.4-5.0)
[2019-04-25] VITALS (431 sets, daily range): BP systolic 110–204; BP diastolic 62–100; PULSE 67–86; TEMP 97.8–98.7; O2SAT 95–100
--- NOTE | 2019-04-25 07:45 | NUR ---
Initial; Pt laying in bed, assessment complete. No complaints of pain, however pt stated his left forearm is burning from the potassium infusion.
[2019-04-25 07:59] LABS: CALCIUM 8.2 mg/dL (8.4-10.2); CHOLESTEROL RISK RATIO 3.3; CREATININE, serum 0.97 (0.66-1.25); POTASSIUM 3.9 mmol/L (3.4-5.0)
--- NOTE | 2019-04-25 10:57 | NUR ---
ALL MEDICATIONS GIVEN VORB WITH MD. SEE MERGE FOR ALL MEDICATION ADMIN TIMES. SEE MERGE FOR ALL RASS ASSESSMENTS DURING AND POST PROCEDURE.
--- NOTE | 2019-04-25 12:10 | NUR ---
Report given to Leela in ICU. Pt will go to ICU from Cathlab.
--- NOTE | 2019-04-25 12:39 | NUR ---
Report received from mini lab operator and pt brought to ICU on bed. Left groin dressing C/D/I. Vitals stable. Denies any pain or concerns. Instructed on flat time and importance of following. Will continue to monitor.
--- NOTE | 2019-04-25 13:24 | NUR ---
Orders clarified with Dr Luna. Pt to remain on flat time for 4 hours and continue current bag of IV fluids.
--- NOTE | 2019-04-25 13:26 | NUR ---
The patient transferred down to ICU. LESLEY notified ICU Aviva SUTTON.
--- NOTE | 2019-04-25 15:03 | NUR ---
Report given to Eusebia BECERRA and care transfered.
--- NOTE | 2019-04-25 15:05 | NUR ---
RECEIVED REPORT FORM HERNAN DREW. INFORMED PT OF CHANGE OF NURSES, VERBALIZED UNDERSTANDING. PT PLACED IN REVERSE TRENDELENBERG TO GET SET UP FOR LUNCH TRAY.
--- NOTE | 2019-04-25 16:18 | NUR ---
PT ABLE TO VOID PER URINAL. SEE I&O FLOWSHEET. PT TALKIGN TO DATA NETWORK ARCHITECT AT BEDSIDE. COOPERATIVE WITH CARE. LUNCH TRAY IN FRONT OF PT.
--- NOTE | 2019-04-25 16:24 | NUR ---
SPECIAL FORCES ENGINEER SERGEANT student met with the patient to discuss a discharge plan. The patient lives in [place] with his , Angela. The patient has a power scooter and uses a wheel-chair. The patient could not remember the name of his PCP and [facility] and [facility] in [place]. The patient reports he lives on the ground floor of his apartments and has a hospital bed with a bar attached for adjusting himself. The patient has advanced directives in the EMR. The patient plans to return home upon discharge with his son or boss providing transportation. client services coordinator will continue to follow to ensure safe discharge.
[2019-04-26] VITALS (92 sets, daily range): BP systolic 124–173; BP diastolic 57–82; PULSE 70–77; TEMP 97.8–98; O2SAT 82–100
[2019-04-26 06:01] LABS: BASO # 0.1 (0.0-0.2); BASO % 0.6 % (0.0-2.0); EOS # 0.4 (0.0-0.7); EOS % 4.2 % (0-4.0); GRAN # 5.8 (1.4-6.5); GRAN % 61.4 % (42.2-75.2); HEMATOCRIT 34.9 % (42.0-52.0); HEMOGLOBIN 11.6 g/dl (13.5-18.0); LYMPH # 2.1 (1.2-3.4); MEAN CELL VOLUME 89 fl (80.0-100.0); MEAN CORPUSCULAR HEMOGLOBIN 29 pg (27.0-31.0); MEAN CORPUSCULAR HGB CONC 33 g/dl (33.0-37.0); MEAN PLATELET VOLUME 9.1 fl (7.4-10.4); MONO # 1.1 (0.1-0.6); MONO % 11.6 % (1.7-9.3); PLATELET COUNT 244 K/mm3 (130-400); RED BLOOD COUNT 3.94 M/mm3 (4.20-5.60); REDCELL DISTRIBUTION WIDTH-CV 13.8 % (11.5-14.5)
[2019-04-26 06:15] LABS: CALCIUM 8.2 mg/dL (8.4-10.2); CREATININE, serum 1.21 (0.66-1.25); POTASSIUM 3.8 mmol/L (3.4-5.0)
--- NOTE | 2019-04-26 07:00 | NUR ---
RECEIVED REPORT FROM HERNAN RAGSDALE. PT RESTING AT THIS TIME. CALL LIGHT WITHIN REACH. VSS. PT ON RA.
[2019-04-26] MEDS ORDERED: ZESTRIL 20MG TA20 MG PO (09:30)
--- NOTE | 2019-04-26 09:35 | NUR ---
DR SIM AT BEDSIDE FOR ASSESSMENT.
--- NOTE | 2019-04-26 09:48 | NUR ---
SPOKE WITH DR LORD ABOUT CARDIOLOGY DC STANDPOINT, OKAY TO DC IF HOSPITALISTS AGREES.
--- NOTE | 2019-04-26 10:25 | NUR ---
EDUCATED PT ON DC PROCESS, VERBALIZED UNDERSTANDING.
--- NOTE | 2019-04-26 12:00 | NUR ---
DC INSTRUCTIONS PROVIDED TO PT. AWAITING ARRIVAL OF CAREGIVER TO TAKE PT HOME.
--- NOTE | 2019-04-26 12:25 | NUR ---
PT DCd AT THIS TIME. ALL PERSONAL BELONGINGS SENT WITH PT. PT ABLE TO WHEELCHAIR SELF OUT IN PERSONAL WC. NO ACUTE S/S OF DISTRESS NOTED. CAREGIVER ACCOMPANYING PT.
--- NOTE | 2019-04-28 16:19 | NUR ---
Erika from [facility] contacted to inform that he has service thru them. LESLEY faxed discharge orders. No additional needs.
== END 2019-04-26 12:25 | disposition home or self-care (01) | DRG 246 ==
LOC: COL.ER 15:53 → ICU 17:25 → MEDICAL 04-24 14:37 → ICU 04-25 11:56
PROVIDERS: Emergency Medicine; Internal Medicine; Internal Medicine Interventional Cardiology; Nurse Practitioner Family; ADMIT Student in an Organized Health Care Education/Training Program
PROC: 027034Z Dilation of Coronary Artery, One Artery with Drug-eluting Intraluminal Device, Percutaneous Approach (ICD-10-PCS; principal; 2019-04-25)
PROC: 4A023N7 Measurement of Cardiac Sampling and Pressure, Left Heart, Percutaneous Approach (ICD-10-PCS; 2019-04-25)
PROC: B2111ZZ Fluoroscopy of Multiple Coronary Arteries using Low Osmolar Contrast (ICD-10-PCS; 2019-04-25)
DX: I25.10 Atherosclerotic heart disease of native coronary artery without angina pectoris (principal); I21.4 Non-ST elevation (NSTEMI) myocardial infarction; E87.2 Acidosis; I16.0 Hypertensive urgency; E11.43 Type 2 diabetes mellitus with diabetic autonomic (poly)neuropathy; K31.84 Gastroparesis; E11.65 Type 2 diabetes mellitus with hyperglycemia; E86.0 Dehydration; I73.9 Peripheral vascular disease, unspecified; Z89.511 Acquired absence of right leg below knee; F17.210 Nicotine dependence, cigarettes, uncomplicated; Z88.1 Allergy status to other antibiotic agents; E11.621 Type 2 diabetes mellitus with foot ulcer; L97.529 Non-pressure chronic ulcer of other part of left foot with unspecified severity; Z79.4 Long term (current) use of insulin
CPT/HCPCS: 99223-AI; 99232-AI; 99239; C1725; C1760; C1769; C1874; C1887; C1894; C9600; J0360; J0583; J1644; J1650; J1815; J2250; J2270; J2405; J2550; J3010; J3480; J7030; J7050; Q9967

== ENCOUNTER 2019-06-04 11:58 | Emergency (ER) | payer MEDICARE ==
[~2019-06-04] VITALS: Ht 170.2 cm; Wt 61.4 kg
[~2019-06-04 11:58] MED LIST changes: +CEPHALEXIN500 M1 PO; +PLAVIX 75MG TAB75 MG PO; +PROTONIX20 MG PO
[2019-06-04 12:01] VITALS: PULSE 87; TEMP 98.9
[2019-06-04 12:35] LABS: BASO % 0.2 % (0.0-2.0); EOS % 0.1 % (0-4.0); GRAN # 16.5 (1.4-6.5); GRAN % 86.7 % (42.2-75.2); HEMATOCRIT 42.7 % (42.0-52.0); HEMOGLOBIN 14.7 g/dl (13.5-18.0); LYMPH # 1.2 (1.2-3.4); LYMPH % 6.1 % (20.0-51.0); MEAN CELL VOLUME 86 fl (80.0-100.0); MEAN CORPUSCULAR HEMOGLOBIN 30 pg (27.0-31.0); MEAN CORPUSCULAR HGB CONC 34 g/dl (33.0-37.0); MEAN PLATELET VOLUME 9.5 fl (7.4-10.4); MONO # 1.2 (0.1-0.6); MONO % 6.4 % (1.7-9.3); PLATELET COUNT 301 K/mm3 (130-400); RED BLOOD COUNT 4.96 M/mm3 (4.20-5.60); REDCELL DISTRIBUTION WIDTH-CV 13.4 % (11.5-14.5)
[2019-06-04 12:44] LABS: ALBUMIN 4.7 gm/dL (3.5-5.0); BILIRUBIN,TOTAL 0.9 mg/dL (0.0-1.0); CALCIUM 10.1 mg/dL (8.4-10.2); CREATININE, serum 1.43 (0.66-1.25); TOTAL PROTEIN 8.3 gm/dL (6.4-8.2)
[2019-06-04 12:47] LABS: C-REACTIVE PROTEIN 0.5 mg/dL (0.0-0.9)
[2019-06-04] MEDS ORDERED: ZOFRAN ODT4 MG PO (14:28)
[2019-06-04 14:32] VITALS: BP 182/85
[2019-06-04 14:55] LABS: HEMATOCRIT 38.4 % (42.0-52.0); HEMOGLOBIN 12.9 g/dl (13.5-18.0); MEAN CELL VOLUME 87 fl (80.0-100.0); MEAN CORPUSCULAR HEMOGLOBIN 29 pg (27.0-31.0); MEAN CORPUSCULAR HGB CONC 34 g/dl (33.0-37.0); MEAN PLATELET VOLUME 8.7 fl (7.4-10.4); PLATELET COUNT 255 K/mm3 (130-400); REDCELL DISTRIBUTION WIDTH-CV 13.5 % (11.5-14.5)
[2019-06-04 15:22] LABS: LYMPHOCYTE 6 % (20.0-51.0); NEUTROPHILS 89 % (42.0-75.2)
[2019-06-04 15:23] LABS: BURR CELLS 1+; OVALOCYTES 1+
[2019-06-04 15:24] LABS: POIKILOCYTOSIS 2+; SPHEROCYTE 1+
[2019-06-04 15:25] LABS: PLATELET ESTIMATE NORMAL (NORMAL)
== END 2019-06-04 15:30 | disposition home or self-care (01) ==
LOC: COL.ER 11:58
PROVIDERS: Family Medicine
DX: E11.43 Type 2 diabetes mellitus with diabetic autonomic (poly)neuropathy (principal); K31.84 Gastroparesis; I25.10 Atherosclerotic heart disease of native coronary artery without angina pectoris; I10 Essential (primary) hypertension; Z87.891 Personal history of nicotine dependence; Z79.82 Long term (current) use of aspirin; Z79.4 Long term (current) use of insulin; Z79.02 Long term (current) use of antithrombotics/antiplatelets
CPT/HCPCS: J2270; J2405; J7030

== ENCOUNTER 2019-06-05 09:07 | Inpatient (IN) | payer MEDICARE ==
[~2019-06-05] VITALS: Ht 170.2 cm; Wt 73.0 kg
[2019-06-05 09:56] LABS: BASO % 0.2 % (0.0-2.0); GRAN # 14.5 (1.4-6.5); GRAN % 86.5 % (42.2-75.2); HEMATOCRIT 40.6 % (42.0-52.0); LYMPH # 1.1 (1.2-3.4); LYMPH % 6.4 % (20.0-51.0); MEAN CELL VOLUME 86 fl (80.0-100.0); MEAN CORPUSCULAR HEMOGLOBIN 30 pg (27.0-31.0); MEAN CORPUSCULAR HGB CONC 35 g/dl (33.0-37.0); MONO # 1.1 (0.1-0.6); MONO % 6.5 % (1.7-9.3); PLATELET COUNT 304 K/mm3 (130-400); RED BLOOD COUNT 4.75 M/mm3 (4.20-5.60); REDCELL DISTRIBUTION WIDTH-CV 13.2 % (11.5-14.5)
[2019-06-05 10:08] LABS: ALANINE AMINOTRANSFERASE 11 U/L (21-72); ALBUMIN 4.6 gm/dL (3.5-5.0); ALKALINE PHOSPHATASE 97 U/L (50-136); ANION GAP 13 mmol/L (7-16); AST,SGOT 36 U/L (15-37); BILIRUBIN,TOTAL 0.9 mg/dL (0.0-1.0); BLOOD UREA NITROGEN 37 mg/dL (9-20); CALCIUM 9.8 mg/dL (8.4-10.2); CARBON DIOXIDE 28 mmol/L (22-30); CHLORIDE 95 mmol/L (98-107); CREATININE, serum 1.25 (0.66-1.25); GLUCOSE 233 mg/dL (74-106); LIPASE 456 U/L (23-300); POTASSIUM 3.5 mmol/L (3.4-5.0); SODIUM 135 mmol/L (137-145); TOTAL PROTEIN 8.2 gm/dL (6.4-8.2)
[2019-06-05 10:09] LABS: C-REACTIVE PROTEIN < 0.5 mg/dL (0.0-0.9)
[2019-06-05 14:14] LABS: COLLECTION METHOD CLEAN CATCH
[2019-06-05 14:27] LABS: PH 7 (5-8); SQUAMOUS EPITHELIAL None Seen /hpf; URINE APPEARANCE Clear; URINE BACTERIA None Seen /hpf; URINE BILIRUBIN Negative (NEGATIVE); URINE BLOOD 1+ (NEGATIVE); URINE COLOR Yellow; URINE GLUCOSE 3+ (NEGATIVE); URINE KETONE Trace (NEGATIVE); URINE LEUKOCYTE ESTERASE Negative (NEGATIVE); URINE NITRATE Negative (NEGATIVE); URINE PROTEIN(semi-quant) 3+ (NEGATIVE); URINE UROBILINOGEN Negative (NEGATIVE)
[2019-06-05 15:53] VITALS: BP 130/55; PULSE 78; TEMP 98.1
[2019-06-05 16:18] VITALS: BP 130/55; PULSE 78; TEMP 98.1
--- NOTE | 2019-06-05 17:59 | NUR ---
Patient back from CT
--- NOTE | 2019-06-05 18:37 | NUR ---
Patient has done well since up from ER. Alert and oriented x 3. Right BKA noted. LLE with compression dressing on, patient states placed by home health to be taken off today, removed, scabbing note to rojas. Dry skin noted to left foot. Fluids infusing per orders to left AC. Denies pain or further needs at this time. Will report off to shift superintendent caustic cresylate.
[2019-06-05 19:23] VITALS: BP 167/76; PULSE 75; TEMP 98.6
--- NOTE | 2019-06-05 20:45 | NUR ---
Patient reports "just hurt all over". Reports abdominal pain improved though. No nausea. Morphine 1 mg given SIV. HS meds all reviewed and given. Alert and oriented x 4. BLE elevated on pillow. Nuclear med phoned with instructions for gastric emptying test to be done around 0630 am. To avoid pain meds, NPO, give insulin if needed prior to test because they will feed patient breakfast and not to give gastric motility meds. Will review above with patient.
[2019-06-05 23:34] VITALS: BP 155/70; PULSE 70; TEMP 99
[2019-06-06] VITALS (12 sets, daily range): BP systolic 130–239; BP diastolic 64–100; PULSE 67–94; TEMP 97.9–99
--- NOTE | 2019-06-06 02:16 | NUR ---
Patient rests in bed with eyes closed. Respirations with ease.
--- NOTE | 2019-06-06 04:30 | NUR ---
Patient reports dozing off and on for 10 minutes at a time. BP 212/93 and apresoline 10mg SIV given.
--- NOTE | 2019-06-06 06:15 | NUR ---
Dr. Brody called with recent BP of 239/100 and given apresoline at 0430 for BP of sbp 212. Order received to hold gastric emptying study until BP stable and given apresoline 10mg IV now. Nuc med called and reported above and states if test not done in a certain time frame may have to do another day. Nuc med stated ok to give zofran if nauseated (patient states feeling like he could be nauseated) and zofran given IV. Nuc med staff reported may also give patient sips of water-given due to patient states mouth so dry it hurts.
[2019-06-06 06:22] LABS: BASO % 0.2 % (0.0-2.0); EOS % 0.2 % (0-4.0); GRAN # 9.3 (1.4-6.5); GRAN % 79.2 % (42.2-75.2); HEMATOCRIT 37.1 % (42.0-52.0); HEMOGLOBIN 12.4 g/dl (13.5-18.0); LYMPH # 1.3 (1.2-3.4); LYMPH % 11.2 % (20.0-51.0); MEAN CELL VOLUME 87 fl (80.0-100.0); MEAN CORPUSCULAR HEMOGLOBIN 29 pg (27.0-31.0); MEAN CORPUSCULAR HGB CONC 33 g/dl (33.0-37.0); MONO % 8.8 % (1.7-9.3); PLATELET COUNT 256 K/mm3 (130-400); RED BLOOD COUNT 4.26 M/mm3 (4.20-5.60); REDCELL DISTRIBUTION WIDTH-CV 13.3 % (11.5-14.5)
[2019-06-06 06:38] LABS: CALCIUM 8.5 mg/dL (8.4-10.2); CREATININE, serum 1.21 (0.66-1.25); POTASSIUM 3.3 mmol/L (3.4-5.0)
[2019-06-06 06:46] LABS: TROPONIN-I 0.021 ng/mL (0.000-0.035)
--- NOTE | 2019-06-06 08:00 | NUR ---
Patient in bed resting. Alert and oriented x 3. Shift assessment complete. Patient states pain 8/10 "from head to toe", unable to describe pain. SBP in 200's, hospitalist aware. Will continue to monitor.
--- NOTE | 2019-06-06 14:43 | NUR ---
Pipe Bowls Paint Trimmer attended clinical rounds with the team. Patient states he is in pain and Hospitialist discussed treatment plan. SW met with the patient to complete initial intake. Patient states he lives in [place] with his Angela ([phone]) and his youngest son, Gelacio. Patient states he receives primary care from the [facility], however does not know the name of the provider. Patient states he obtains his needed medications from either the [facility] or from [facility] in . Patient reports he was mostly independent with ADLS prior to hospitalization. Patient states he has a wheelchair, walker and powerchair to assist with mobility. Patient does not have Advance Directives and was not interested in setting them up at this time. Patient states he would like to return home upon discharge. LESLEY will continue to follow to ensure safe discharge.
--- NOTE | 2019-06-06 19:18 | NUR ---
Patient has done well throughout the day. Family at bedside.Pain medications given per orders. Denies further needs at this time. Reported off to shift stacker.
[2019-06-07] VITALS (10 sets, daily range): BP systolic 132–183; BP diastolic 57–76; PULSE 66–79; TEMP 97.7–99
--- NOTE | 2019-06-07 02:28 | NUR ---
patient resting in bed. states he is having peripheral neuropathy pain throughout his entire body. IV prn toradol is given. patients bp is rising. rechecked at 0200 to be 183/74, IV prn hydralazine pushed. no further needs at this time. will continue to monitor.
[2019-06-07 07:35] LABS: BASO % 0.4 % (0.0-2.0); EOS # 0.1 (0.0-0.7); EOS % 1.3 % (0-4.0); GRAN # 7.1 (1.4-6.5); GRAN % 65.5 % (42.2-75.2); HEMOGLOBIN 10.7 g/dl (13.5-18.0); LYMPH # 2.2 (1.2-3.4); LYMPH % 20.6 % (20.0-51.0); MEAN CELL VOLUME 87 fl (80.0-100.0); MEAN CORPUSCULAR HEMOGLOBIN 29 pg (27.0-31.0); MEAN CORPUSCULAR HGB CONC 33 g/dl (33.0-37.0); MEAN PLATELET VOLUME 9.3 fl (7.4-10.4); MONO # 1.3 (0.1-0.6); MONO % 11.9 % (1.7-9.3); PLATELET COUNT 241 K/mm3 (130-400); RED BLOOD COUNT 3.67 M/mm3 (4.20-5.60); REDCELL DISTRIBUTION WIDTH-CV 13.4 % (11.5-14.5)
[2019-06-07 07:55] LABS: CALCIUM 7.9 mg/dL (8.4-10.2); CREATININE, serum 1.6 (0.66-1.25); MAGNESIUM 2.2 mg/dL (1.6-2.3); POTASSIUM 3.3 mmol/L (3.4-5.0)
--- NOTE | 2019-06-07 10:30 | NUR ---
Patient has been very anxious this morning. He spoke with Dr Navarro about his medications not workin. Some of his medications have been changed. Explained the difference between his gabapentin and lyrica. Patient seems to be in better spirits now after talking. No other changes at this time. Call light within reach.
--- NOTE | 2019-06-07 18:30 | NUR ---
Patient has been doing better this afternoon than this morning. He has not had pain since this morning. He seems to be resting comfortably. Denies nausea. He is eating and drinking without any problems. He is on a mechanical soft diet and is tolerating it well. No other changes at this time. Call light within reach.
--- NOTE | 2019-06-07 20:00 | NUR ---
Report received. Assumed care for cook night. A&Ox3. Assessment complete. Denies nausea/pain/shortness of breath. IV to left AC infusing Potassium-two bags left for this round of protocol. NS@75ml/hr. Tolerated PO diet. Plan of care discussed for this shift-pain control/HS meds/potassium protocol. Denies questions or concerns. Call light in reach. Bed in low position/wheels locked. will monitor.
[2019-06-08 04:07] VITALS: BP 188/71; PULSE 70; TEMP 98.4
--- NOTE | 2019-06-08 04:20 | NUR ---
Report received from [facility] that blood pressure was elevated in the 180s. Verified with manual cuff-192/88. Hydralazine 10mg given per dr order. Also c/o pain-states its all over-states is neuropathy pain. Morphine 1mg given IV per dr order. Will reassess BP in one hour as well as pain level.
[2019-06-08 05:00] VITALS: BP 167/62
--- NOTE | 2019-06-08 05:45 | NUR ---
C/O nausea/no emesis but dry heaving. States it started all of a sudden and he just felt nauseated. Zofran given IV per dr order. Will monitor effectiveness.
[2019-06-08 06:43] LABS: BASO # 0.1 (0.0-0.2); BASO % 0.5 % (0.0-2.0); EOS # 0.4 (0.0-0.7); EOS % 3.7 % (0-4.0); GRAN # 5.8 (1.4-6.5); GRAN % 62.3 % (42.2-75.2); HEMOGLOBIN 10.4 g/dl (13.5-18.0); LYMPH # 2.1 (1.2-3.4); LYMPH % 22.1 % (20.0-51.0); MEAN CELL VOLUME 87 fl (80.0-100.0); MEAN CORPUSCULAR HEMOGLOBIN 29 pg (27.0-31.0); MEAN CORPUSCULAR HGB CONC 33 g/dl (33.0-37.0); MEAN PLATELET VOLUME 9.7 fl (7.4-10.4); MONO # 1.1 (0.1-0.6); MONO % 11.2 % (1.7-9.3); PLATELET COUNT 234 K/mm3 (130-400); RED BLOOD COUNT 3.56 M/mm3 (4.20-5.60); REDCELL DISTRIBUTION WIDTH-CV 13.5 % (11.5-14.5)
[2019-06-08 06:51] LABS: CALCIUM 7.8 mg/dL (8.4-10.2); CREATININE, serum 1.42 (0.66-1.25)
[2019-06-08 06:59] LABS: HEMATOCRIT 31.1 % (42.0-52.0)
[2019-06-08 07:24] VITALS: BP 189/76; PULSE 80; TEMP 98.3
[2019-06-08 11:50] VITALS: BP 133/81; PULSE 63; TEMP 97.5
--- NOTE | 2019-06-08 11:52 | NUR ---
Patient inicontinent of stool and urine. Pericare provided.
--- NOTE | 2019-06-08 13:14 | NUR ---
Initial visit; Patient thanked An/Syq 13 Nav/C2 Operator for looking in on him, listening and offering God's blessings.
[2019-06-08 15:46] VITALS: BP 152/61; PULSE 65; TEMP 98.5
--- NOTE | 2019-06-08 16:46 | NUR ---
Strings Teacher attended clinical rounds with the team. Patient states he is [facility] who [facility] Patient also states his medications are expensive despite obtaining them at the [facility]. LESLEY to continue to follow. LESLEY spoke with Payton at [facility] who advised patient receives their services for wound care. Payton reports certifying physician is Dr. Luna. Payton states patient has received services from them since November. Patient to discharge tomorrow. LESLEY to continue to follow.
--- NOTE | 2019-06-08 18:34 | NUR ---
Patient has done well throughout the day. Requested pain medications for generalized pain this afternoon, given medications per orders. Denies further needs at this time. Will report off to manufacturing supervisor 2nd shift.
[2019-06-08 20:00] VITALS: BP 142/61; PULSE 59; TEMP 98.2
--- NOTE | 2019-06-08 21:00 | NUR ---
PT RESTING IN BED. A&OX4. TALKATIVE. DENIES NEEDS FOR PRN PAIN MED AT THIS TIME. ABD SOFT BSX4. PT RELATES PASSING GAS ON OCCASION. LBM WAS 11-1-19. DENIES CONSTIPATION. PT RELATES READY TO GO HOME TOMORROW.
[2019-06-09 00:28] VITALS: BP 177/78; PULSE 69; TEMP 97.7
[2019-06-09 01:02] VITALS: BP 180/66
--- NOTE | 2019-06-09 01:20 | NUR ---
SBP 180/66. SEE MAR FOR APESOLINE IV GIVEN. PT ASYMPTOMATIC. DENIES ABD PAIN, OR NAUSEA. ACCUCHECK EARLIER 170. PT ATE SANDWICH EARLIER TONIGHT.
[2019-06-09 02:07] VITALS: BP 110/50
--- NOTE | 2019-06-09 04:15 | NUR ---
PT SLEEPING. NO REAP DISTRESS.
[2019-06-09 05:36] VITALS: BP 147/60; PULSE 76; TEMP 98.4
[2019-06-09 06:10] LABS: BASO # 0.1 (0.0-0.2); BASO % 0.7 % (0.0-2.0); EOS # 0.4 (0.0-0.7); EOS % 4.5 % (0-4.0); GRAN # 5.3 (1.4-6.5); GRAN % 62.3 % (42.2-75.2); HEMATOCRIT 29.8 % (42.0-52.0); LYMPH # 1.9 (1.2-3.4); LYMPH % 21.9 % (20.0-51.0); MEAN CELL VOLUME 87 fl (80.0-100.0); MEAN CORPUSCULAR HEMOGLOBIN 29 pg (27.0-31.0); MEAN CORPUSCULAR HGB CONC 34 g/dl (33.0-37.0); MEAN PLATELET VOLUME 9.6 fl (7.4-10.4); MONO # 0.9 (0.1-0.6); MONO % 10.2 % (1.7-9.3); PLATELET COUNT 228 K/mm3 (130-400); RED BLOOD COUNT 3.42 M/mm3 (4.20-5.60); REDCELL DISTRIBUTION WIDTH-CV 13.5 % (11.5-14.5)
[2019-06-09 06:20] LABS: CALCIUM 7.7 mg/dL (8.4-10.2); CREATININE, serum 1.22 (0.66-1.25)
[2019-06-09 07:48] VITALS: BP 140/58; PULSE 70; TEMP 98.1
--- NOTE | 2019-06-09 08:00 | NUR ---
UPON ENTRY TO THE ROOM THE PATIENT IS SITTING UP IN BED WITH HIS BREAKFAST TRAY. PATIENT IS A&OX4. VSS. BOWEL SOUNDS ACTIVE ALL FOUR QUADRANTS. PATIENT TOLERATING DIET WITHOUT ANY COMPLAINTS OF N/V. PATIENT STATES THAT HE FEELS WEAK TODAY. 1+ PITTING EDEMA TO LLE. POSITIVE POPLITEAL PULSES EQUAL BILATERALLY. INT TO LEFT FOREARM. CALL LIGHT WITHIN REACH. PATIENT DENIES ANY NEEDS AT THIS TIME.
[2019-06-09] MEDS ORDERED: LYRICA 75MG CAP75 MG PO (10:26)
[2019-06-09] MEDS ORDERED: CYMBALTA 20MG20 MG PO (10:27)
[2019-06-09] MEDS ORDERED: NORVASC 10MG10 MG PO (10:29)
[2019-06-09] MEDS ORDERED: ZESTRIL40 MG PO (10:29)
--- NOTE | 2019-06-09 10:58 | NUR ---
Computer Forensics Analyst attended clinical rounds with the team. Patient to discharge today. LESLEY met with patient following rounds and presented IM form. Patient understands rights and provided signature. LESLEY placed IM in patient chart. Patient states he is still unsure of who his exact primary care provider is, although reports he sees a nurse practitioner at the [facility]. Patient states he believes he is seen by the [facility] team. LESLEY spoke with rn unit manager who advised she would contact [facility] to set up follow up appointment. LESLEY will send discharge orders to Janel DA SILVA once they are completed. LESLEY spoke with JOSHUA Aguiar who advised patient may benefit from PT provided by . Patient states he had this service at one time.
[2019-06-09 11:12] VITALS: BP 131/60; PULSE 65; TEMP 97.8
--- NOTE | 2019-06-09 11:44 | NUR ---
LEFT FOREARM INT DISCONTINUED PER PENDING DISCHARGE. TIP INTACT. PATIENT TOLERATED WELL.
--- NOTE | 2019-06-09 12:38 | NUR ---
DISCHARGE INSTRUCTIONS REVIEWED WITH PATIENT. ALL QUESTIONS ANSWERED. PATIENT PERSONAL BELONGINGS GATHERED. PATIENT TAKEN TO PERSONAL VEHICLE VIA WHEELCHAIR BY SURGICAL STAFF. PATIENT DISCHARGED.
--- NOTE | 2019-06-09 13:45 | NUR ---
School Resource Officer faxed discharge orders to [facility].
== END 2019-06-09 12:38 | disposition home or self-care (01) | DRG 392 ==
LOC: COL.ER 09:07 → SURG 10:24
PROVIDERS: Family Medicine; Nurse Practitioner Family; Physician Assistant; ADMIT Student in an Organized Health Care Education/Training Program
DX: R11.2 Nausea with vomiting, unspecified (principal); N17.9 Acute kidney failure, unspecified; R10.9 Unspecified abdominal pain; E11.65 Type 2 diabetes mellitus with hyperglycemia; I10 Essential (primary) hypertension; I16.0 Hypertensive urgency; I25.10 Atherosclerotic heart disease of native coronary artery without angina pectoris; F17.210 Nicotine dependence, cigarettes, uncomplicated; F41.9 Anxiety disorder, unspecified; R07.9 Chest pain, unspecified; D72.829 Elevated white blood cell count, unspecified; K59.00 Constipation, unspecified; E11.22 Type 2 diabetes mellitus with diabetic chronic kidney disease; J31.0 Chronic rhinitis; E11.40 Type 2 diabetes mellitus with diabetic neuropathy, unspecified; F32.9 Major depressive disorder, single episode, unspecified; E87.6 Hypokalemia; Z91.14 Patient's other noncompliance with medication regimen; I25.2 Old myocardial infarction; Z79.01 Long term (current) use of anticoagulants; Z95.818 Presence of other cardiac implants and grafts; Z89.511 Acquired absence of right leg below knee; Z79.4 Long term (current) use of insulin; Z79.82 Long term (current) use of aspirin
CPT/HCPCS: OP; 99232-AI; 99233-AI; 99239; A9541; C9113; G0378; J0360; J1200; J1630; J1650; J1815; J1885; J2060; J2270; J2405; J3480; J7030; Q9967

== ENCOUNTER 2019-07-22 19:05 | Inpatient (IN) | payer MEDICARE ==
[~2019-07-22] VITALS: Ht 170.2 cm; Wt 76.6 kg
[~2019-07-22 19:05] MED LIST changes: +CYMBALTA 20MG20 MG PO; +LYRICA 75MG CAP75 MG PO; +ZESTRIL40 MG PO
[2019-07-22 20:17] LABS: BASO # 0.1 (0.0-0.2); BASO % 0.6 % (0.0-2.0); EOS % 0.1 % (0-4.0); GRAN # 17.1 (1.4-6.5); GRAN % 88.6 % (42.2-75.2); HEMATOCRIT 42.2 % (42.0-52.0); HEMOGLOBIN 14.4 g/dl (13.5-18.0); LYMPH % 4.9 % (20.0-51.0); MEAN CELL VOLUME 87 fl (80.0-100.0); MEAN CORPUSCULAR HEMOGLOBIN 30 pg (27.0-31.0); MEAN CORPUSCULAR HGB CONC 34 g/dl (33.0-37.0); MEAN PLATELET VOLUME 9.5 fl (7.4-10.4); MONO % 5.3 % (1.7-9.3); PLATELET COUNT 362 K/mm3 (130-400); RED BLOOD COUNT 4.85 M/mm3 (4.20-5.60); REDCELL DISTRIBUTION WIDTH-CV 13.6 % (11.5-14.5)
[2019-07-22 20:28] LABS: ALANINE AMINOTRANSFERASE 11 U/L (21-72); ALBUMIN 4.8 gm/dL (3.5-5.0); ALKALINE PHOSPHATASE 114 U/L (50-136); ANION GAP 16 mmol/L (7-16); AST,SGOT 28 U/L (15-37); BILIRUBIN,TOTAL 0.7 mg/dL (0.0-1.0); BLOOD UREA NITROGEN 30 mg/dL (9-20); CALCIUM 10.2 mg/dL (8.4-10.2); CARBON DIOXIDE 22 mmol/L (22-30); CHLORIDE 104 mmol/L (98-107); CREATININE, serum 1.11 (0.66-1.25); GLUCOSE 349 mg/dL (74-106); LIPASE 354 U/L (23-300); POTASSIUM 3.9 mmol/L (3.4-5.0); SODIUM 142 mmol/L (137-145); TOTAL PROTEIN 8.4 gm/dL (6.4-8.2)
[2019-07-22 20:55] LABS: C-REACTIVE PROTEIN < 0.5 mg/dL (0.0-0.9)
[2019-07-22 23:02] LABS: COLLECTION METHOD CLEAN CATCH
[2019-07-22 23:05] LABS: TROPONIN-I 0.016 ng/mL (0.000-0.035)
[2019-07-22 23:10] LABS: MUCOUS Present /lpf; PH 7 (5-8); SQUAMOUS EPITHELIAL None Seen /hpf; URINE APPEARANCE Clear; URINE BACTERIA None Seen /hpf; URINE BILIRUBIN Negative (NEGATIVE); URINE BLOOD 1+ (NEGATIVE); URINE COLOR Yellow; URINE GLUCOSE 3+ (NEGATIVE); URINE KETONE Trace (NEGATIVE); URINE LEUKOCYTE ESTERASE Negative (NEGATIVE); URINE NITRATE Negative (NEGATIVE); URINE PROTEIN(semi-quant) 3+ (NEGATIVE); URINE UROBILINOGEN Negative (NEGATIVE)
[2019-07-23] VITALS (1362 sets, daily range): BP systolic 103–184; BP diastolic 60–107; PULSE 76–99; TEMP 97.8–98.7; O2SAT 65–100
--- NOTE | 2019-07-23 00:05 | NUR ---
Patient arrived to ICU accompanied by JULIETH Jonas. Patient care assumed at this time, please see documentation for assessment details. Patient very unsure of medication use, states he "last took his meds on Wednesday." Unsure of list, asked patient to have bring list tomorrow for verification, patient agreeable.
[2019-07-23 04:16] LABS: BASO % 0.3 % (0.0-2.0); GRAN # 12.1 (1.4-6.5); GRAN % 87.2 % (42.2-75.2); LYMPH % 7.1 % (20.0-51.0); MEAN CELL VOLUME 90 fl (80.0-100.0); MEAN CORPUSCULAR HGB CONC 33 g/dl (33.0-37.0); MEAN PLATELET VOLUME 9.6 fl (7.4-10.4); MONO # 0.7 (0.1-0.6); PLATELET COUNT 306 K/mm3 (130-400); RED BLOOD COUNT 3.97 M/mm3 (4.20-5.60); REDCELL DISTRIBUTION WIDTH-CV 13.9 % (11.5-14.5)
[2019-07-23 04:23] LABS: ALBUMIN 3.8 gm/dL (3.5-5.0); BILIRUBIN,TOTAL 0.5 mg/dL (0.0-1.0); CALCIUM 8.9 mg/dL (8.4-10.2); CREATININE, serum 1.14 (0.66-1.25); MAGNESIUM 1.9 mg/dL (1.6-2.3); PHOSPHOROUS 2.9 mg/dL (2.5-4.5); POTASSIUM 3.9 mmol/L (3.4-5.0); TOTAL PROTEIN 6.8 gm/dL (6.4-8.2)
[2019-07-23 05:03] LABS: HEMATOCRIT 35.8 % (42.0-52.0); HEMOGLOBIN 11.8 g/dl (13.5-18.0); MEAN CORPUSCULAR HEMOGLOBIN 30 pg (27.0-31.0)
--- NOTE | 2019-07-23 05:05 | NUR ---
Patient becoming verbally agitated with ERIC Santos, regarding "asking all of these questions." Patient instructed that drinking water fast would make him more nauseous, ignored the advice and threw up several minutes after.
[2019-07-23 06:06] LABS: TRICYCLIC ANTIDEPRESS URINE NEGATIVE
[2019-07-23 06:28] LABS: INR 0.9 (0.8-3.0)
[2019-07-23 06:31] LABS: PARTIAL THROMBOPLASTIN TIME 29.1 SECONDS (26.0-37.0)
--- NOTE | 2019-07-23 19:20 | NUR ---
Bedside report received from HERNAN Anderson
--- NOTE | 2019-07-23 20:00 | NUR ---
Patient awake at this time resting in bed. He is alert and oriented x4. Patient has some complaints of nausea, medication to be provided. No complaints of pain or signs of distress. Assessment complete. Lungs are clear bilaterally with diminished bases. HR and rhythm are regular with normal S1 and S2 heard. Bowel sounds active x4. Peripheral pulses are all palpable. Patient has slight edema to left foot. Patient has no current needs at this time. Will continue to monitor. Call light within reach.
[2019-07-24] VITALS (917 sets, daily range): BP systolic 125–189; BP diastolic 53–98; PULSE 70–99; TEMP 97.9–98.8; O2SAT 92–100
--- NOTE | 2019-07-24 | NUR ---
Patient asleep but awakens easily to name. Vitals obtained and remain stable. No complaints of pain. Patient has no current needs at this time. Urinal emptied. Will continue to monitor. Call light within reach.
--- NOTE | 2019-07-24 04:00 | NUR ---
Patient continues to sleep peacefully. Awakens to name. Vitals obtained. BP's have remained stable. No further needs at this time. Will continue to monitor. Call light within reach.
[2019-07-24 04:25] LABS: HEMATOCRIT 31.2 % (42.0-52.0); HEMOGLOBIN 10.5 g/dl (13.5-18.0); MEAN CELL VOLUME 88 fl (80.0-100.0); MEAN CORPUSCULAR HEMOGLOBIN 30 pg (27.0-31.0); MEAN CORPUSCULAR HGB CONC 34 g/dl (33.0-37.0); MEAN PLATELET VOLUME 9.1 fl (7.4-10.4); PLATELET COUNT 276 K/mm3 (130-400); RED BLOOD COUNT 3.54 M/mm3 (4.20-5.60); REDCELL DISTRIBUTION WIDTH-CV 14.3 % (11.5-14.5)
[2019-07-24 04:45] LABS: CALCIUM 8.3 mg/dL (8.4-10.2); CREATININE, serum 1.41 (0.66-1.25); POTASSIUM 3.2 mmol/L (3.4-5.0)
--- NOTE | 2019-07-24 07:15 | NUR ---
Bedside report given to HERNAN Gutierrez. Assisted Endo nurse with moving patient to Endo cart. Patient leaves unit at this time for EGD.
--- NOTE | 2019-07-24 07:20 | NUR ---
PT TAKEN VIA STRETCHER TO ENDO FOR EGD.
--- NOTE | 2019-07-24 08:15 | NUR ---
PT RETURNED VIA STRETCHER FROM ENDO. PATIENT AWAKE, ALERT, AND ORIENTED. PT ABLE TO TRANSFER SELF ACROSS STRETCHER TO ICU BED.
[2019-07-24 08:20] LABS: BAND 12 % (0-10); BASOPHIL 1 % (0-2); LYMPHOCYTE 14 % (20.0-51.0); NEUTROPHILS 63 % (42.0-75.2); OVALOCYTES 1+; PLATELET ESTIMATE NORMAL (NORMAL)
--- NOTE | 2019-07-24 09:10 | NUR ---
PT TAKEN FOR LEXISCAN VIA WHEELCHAIR.
--- NOTE | 2019-07-24 10:30 | NUR ---
[facility]
--- NOTE | 2019-07-24 13:25 | NUR ---
ATTEMPTED TO EDUCATE PATIENT TO NOT DRINK OR EAT ANYTHING D/T NAUSEA. PATIENT CONTINUES TO DRINK WATER AND VOMITS ANYTIME HE DRINKS D/T HIM DRINKING TOO QUICKLY.
--- NOTE | 2019-07-24 16:39 | NUR ---
PT RESTING COMFORTABLY. BP 134/65, PULSE 86
--- NOTE | 2019-07-24 16:46 | NUR ---
LESLEY met with the patient to discuss a discharge plan. The patient lives in [place] with his , Angela. The patient has a wheelchair, walker, cane and a shower chair. The patient currently does not have home health with [facility] and reports independence with ADLs. [facility] and receives medications via mail from [place] [facility] in . The patient has advanced directives in the EMR. The patient reports he does have transportation upon discharge. fiscal services director will continue to follow to ensure a safe discharge.
--- NOTE | 2019-07-24 17:36 | NUR ---
REPORT CALLED TO GINNA BECERRA ON MEDICAL FLOOR.
--- NOTE | 2019-07-24 17:40 | NUR ---
PT TRANSFERRED VIA PT'S OWN WHEELCHAIR TO MEDICAL ROOM 352. PT'S BELONGINGS TRANSFERRED WITH PATIENT. CONTACT MADE WITH GINNA UPON TRANSFER.
--- NOTE | 2019-07-24 20:00 | NUR ---
Patient was resting in bed during assessment. Patient continues on Potassium protocol. IV in left wrist dressing clean dry and intact. No complaints of nausea or vomiting at this time. 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 Vital signs stable, mild abdominal pain noted. Patient states it hurts from coughing.
[2019-07-25 03:57] VITALS: BP 154/78; PULSE 76; TEMP 98.5
[2019-07-25 08:05] VITALS: BP 180/67; PULSE 76; TEMP 98.5
[2019-07-25 08:57] LABS: HEMOGLOBIN 11.2 g/dl (13.5-18.0); MEAN CELL VOLUME 87 fl (80.0-100.0); MEAN CORPUSCULAR HEMOGLOBIN 30 pg (27.0-31.0); MEAN CORPUSCULAR HGB CONC 34 g/dl (33.0-37.0); PLATELET COUNT 263 K/mm3 (130-400); RED BLOOD COUNT 3.77 M/mm3 (4.20-5.60); REDCELL DISTRIBUTION WIDTH-CV 13.9 % (11.5-14.5)
[2019-07-25 08:59] LABS: HEMATOCRIT 32.9 % (42.0-52.0)
[2019-07-25 09:37] LABS: CALCIUM 8.3 mg/dL (8.4-10.2); CREATININE, serum 1.14 (0.66-1.25); POTASSIUM 3.6 mmol/L (3.4-5.0)
--- NOTE | 2019-07-25 10:00 | NUR ---
Pt assessment completed and charted. Pt refused morning medications at this time, unable to take d/t abdominal pain. Pt states he is having abd pain, some nausea, unable to throw up anything "since he hasn't had anything to eat". Pt on clear liquid diet, not tolerating PO at this time. Received IV reglan. Will discuss w/ hospitalist. Pt has RFA and RWR INT IV. RWR INT IV dc'd, was not flushing and had drainage. RFA INT IV flushes w/o complications. Pt on room air, breathing even and unlabored, denies SOB. Heart RRR, denies chest pain, dizziness, diarrhea. Rt BKA, WC in room. Pulses strong bilaterally, LS cta. Neuro WNL, left hand grasp weak, which is "normal" for patient. No other concerns at this time.
[2019-07-25 11:44] VITALS: BP 157/69; PULSE 81; TEMP 97.8
--- NOTE | 2019-07-25 11:45 | NUR ---
Pt unable to tolerate PO at this time, PO Potassium switched to IV. Pt tolerating IV K+ to LFA w/o complications.
--- NOTE | 2019-07-25 13:30 | NUR ---
Pt received GI cocktail and 1 dose morphine. Per pt, he would "take morning medications after he received morphine and stomach felt better".
--- NOTE | 2019-07-25 14:27 | NUR ---
Angélica, at [facility], contacted SW to inform that the patient does have home health services for PT/OT/SN from them. SW to inform the patient and will continue to follow.
--- NOTE | 2019-07-25 15:30 | NUR ---
Pt tolerating PO meds, states he is feeling much better than earlier. Denies pain or discomfort at this time. No other concerns expressed.
[2019-07-25 15:51] VITALS: BP 151/67; PULSE 71; TEMP 97.9
--- NOTE | 2019-07-25 16:58 | NUR ---
LESLEY met with the patient to inform him of still having services through [facility]. The patient reports that he appreciates their services and plans to resume with them upon discharge. LESLEY to continue to follow.
[2019-07-25 20:00] VITALS: BP 114/58; PULSE 67; TEMP 98.2
--- NOTE | 2019-07-25 20:15 | NUR ---
Patient assessed at this time. Alert and oriented x 4, and able to make needs known. Denies having pain and discomfort. Peripheral IV to left forearm. Site is without redness, warmth, swelling, and pain. Denies SOB and dyspnea. LS CTA upper lobes, diminished lower. Respirations even and unlabored. HRR. Telemetry: NS. Capillary refill less than 3 second. Non-tenting skin turgor. BSAx4. No edema. Voices no questions, needs, or concerns at this time. Resting in bed with call light within reach.
[2019-07-26] VITALS: BP 124/60; PULSE 69; TEMP 98
[2019-07-26 04:59] VITALS: BP 116/57; PULSE 66; TEMP 76.6
--- NOTE | 2019-07-26 06:18 | NUR ---
Patient has denied having pain, discomfort, and nausea throughout the night. Voices no questions, needs, or concerns at this time. Resting in bed with call light within reach.
[2019-07-26 08:22] VITALS: BP 160/72; PULSE 68; TEMP 98.7
[2019-07-26 10:00] LABS: BASO # 0.1 (0.0-0.2); BASO % 0.5 % (0.0-2.0); EOS # 0.1 (0.0-0.7); EOS % 1.3 % (0-4.0); GRAN # 6.8 (1.4-6.5); GRAN % 66.6 % (42.2-75.2); HEMOGLOBIN 11.3 g/dl (13.5-18.0); LYMPH % 19.8 % (20.0-51.0); MEAN CELL VOLUME 88 fl (80.0-100.0); MEAN CORPUSCULAR HEMOGLOBIN 29 pg (27.0-31.0); MEAN CORPUSCULAR HGB CONC 33 g/dl (33.0-37.0); MEAN PLATELET VOLUME 9.6 fl (7.4-10.4); MONO # 1.2 (0.1-0.6); MONO % 11.4 % (1.7-9.3); PLATELET COUNT 280 K/mm3 (130-400); RED BLOOD COUNT 3.85 M/mm3 (4.20-5.60); REDCELL DISTRIBUTION WIDTH-CV 13.7 % (11.5-14.5)
[2019-07-26 10:01] LABS: HEMATOCRIT 33.9 % (42.0-52.0)
[2019-07-26 10:11] LABS: CALCIUM 8.2 mg/dL (8.4-10.2); CREATININE, serum 1.13 (0.66-1.25); MAGNESIUM 2.2 mg/dL (1.6-2.3); POTASSIUM 4.1 mmol/L (3.4-5.0)
--- NOTE | 2019-07-26 10:56 | NUR ---
Pt assessment completed and charted. Pt A&O. Morning medications administered per SEP. Pt tolerated well. Pt denies nausea or abdominal pain this morning, states he's "doing much better than yesterday morning. Pt appears to be doing well. Pt on room air, denies SOB, dizzines, N/V/D. Denies having BM, states he is passing gas. LFA INT IV flushes w/o complications. LS cta, heart RRR. Radial pulses strong bilaterally. No other concerns expressed at this time.
[2019-07-26 12:00] VITALS: BP 95/50; PULSE 64; TEMP 97.7
--- NOTE | 2019-07-26 12:49 | NUR ---
pt VS obtained, BP 95/50. Pt received PRN hydralazine for SBP 160 at 0930. Will recheck BP again.
[2019-07-26] MEDS ORDERED: FLAGYL500 MG PO (14:32)
[2019-07-26] MEDS ORDERED: BIAXIN 500MG T500 MG PO (14:32)
[2019-07-26] MEDS ORDERED: PRINIVIL10 MG PO (14:33)
[2019-07-26] MEDS ORDERED: CARAFATE 1GM1 G PO (14:34)
[2019-07-26] MEDS ORDERED: PROTONIX 40MG T40 MG PO (14:34)
--- NOTE | 2019-07-26 15:40 | NUR ---
Pt resting in bed, awake. BP rechecked, pt moving around a lot, 1st reading 112/47. discharge instructions discussed and reviewed w/ patient who verbalized understanding. LFA INT IV dc'd w/o complications and catheter tip intact. Pt awaiting for ride to get here to be escorted out. BP rechecked after a few minutes. 118/53.
[2019-07-26 15:46] VITALS: BP 118/53; PULSE 68
--- NOTE | 2019-07-26 16:53 | NUR ---
pt escorted out via WC. all questions answered. no further needs.
== END 2019-07-26 16:54 | disposition home or self-care (01) | DRG 392 ==
LOC: COL.ER 19:05 → ICU 22:34 → MEDICAL 07-24 19:13
PROVIDERS: Family Medicine; Internal Medicine Gastroenterology; Nurse Practitioner Family; Student in an Organized Health Care Education/Training Program; ADMIT Student in an Organized Health Care Education/Training Program
PROC: 0DJ08ZZ Inspection of Upper Intestinal Tract, Via Natural or Artificial Opening Endoscopic (ICD-10-PCS; principal; 2019-07-24 07:30)
DX: K29.60 Other gastritis without bleeding (principal); I16.1 Hypertensive emergency; R11.15 Cyclical vomiting syndrome unrelated to migraine; K44.9 Diaphragmatic hernia without obstruction or gangrene; K63.5 Polyp of colon; I25.10 Atherosclerotic heart disease of native coronary artery without angina pectoris; F32.9 Major depressive disorder, single episode, unspecified; F41.9 Anxiety disorder, unspecified; D72.828 Other elevated white blood cell count; E78.5 Hyperlipidemia, unspecified; E11.42 Type 2 diabetes mellitus with diabetic polyneuropathy; E11.51 Type 2 diabetes mellitus with diabetic peripheral angiopathy without gangrene; K21.0 Gastro-esophageal reflux disease with esophagitis; K26.9 Duodenal ulcer, unspecified as acute or chronic, without hemorrhage or perforation; I25.2 Old myocardial infarction; Z89.511 Acquired absence of right leg below knee; Z86.73 Personal history of transient ischemic attack (TIA), and cerebral infarction without residual deficits; Z88.0 Allergy status to penicillin; Z91.19 Patient's noncompliance with other medical treatment and regimen
CPT/HCPCS: OP; 99223-AI; 99232-AI; 99239; A9500; G0378; J0360; J1644; J1815; J2270; J2405; J2550; J2704; J3010; J3480; J7030; J7050

== ENCOUNTER 2019-09-11 14:28 | Emergency (ER) | payer MEDICARE ==
[~2019-09-11] VITALS: Ht 170.2 cm; Wt 75.0 kg
[~2019-09-11 14:28] MED LIST changes: +BIAXIN 500MG T500 MG PO; +CARAFATE 1GM1 G PO; +FLAGYL500 MG PO; +PRINIVIL10 MG PO; +PROTONIX 40MG T40 MG PO
[2019-09-11 15:13] VITALS: TEMP 99.1
[2019-09-11 19:01] LABS: BASO % 0.1 % (0.0-2.0); GRAN # 11.3 (1.4-6.5); GRAN % 78.3 % (42.2-75.2); HEMOGLOBIN 11.3 g/dl (13.5-18.0); LYMPH # 1.4 (1.2-3.4); LYMPH % 9.9 % (20.0-51.0); MEAN CELL VOLUME 89 fl (80.0-100.0); MEAN CORPUSCULAR HEMOGLOBIN 30 pg (27.0-31.0); MEAN CORPUSCULAR HGB CONC 34 g/dl (33.0-37.0); MEAN PLATELET VOLUME 9.6 fl (7.4-10.4); MONO # 1.6 (0.1-0.6); MONO % 11.2 % (1.7-9.3); PLATELET COUNT 349 K/mm3 (130-400); RED BLOOD COUNT 3.72 M/mm3 (4.20-5.60); REDCELL DISTRIBUTION WIDTH-CV 14.4 % (11.5-14.5)
[2019-09-11 19:04] LABS: HEMATOCRIT 33.1 % (42.0-52.0)
[2019-09-11 19:12] LABS: ALANINE AMINOTRANSFERASE 20 U/L (21-72); ALBUMIN 3.7 gm/dL (3.5-5.0); ALKALINE PHOSPHATASE 99 U/L (50-136); ANION GAP 9 mmol/L (7-16); AST,SGOT 28 U/L (15-37); BILIRUBIN,TOTAL 0.8 mg/dL (0.0-1.0); BLOOD UREA NITROGEN 45 mg/dL (9-20); CARBON DIOXIDE 28 mmol/L (22-30); CHLORIDE 102 mmol/L (98-107); CREATININE, serum 1.27 (0.66-1.25); GLUCOSE 176 mg/dL (74-106); LIPASE 469 U/L (23-300); POTASSIUM 3.3 mmol/L (3.4-5.0); SODIUM 139 mmol/L (137-145); TOTAL PROTEIN 6.6 gm/dL (6.4-8.2)
[2019-09-11 19:13] LABS: ACETONE,SERUM NEGATIVE
[2019-09-11 19:14] LABS: C-REACTIVE PROTEIN < 0.5 mg/dL (0.0-0.9)
[2019-09-11] MEDS ORDERED: ZOFRAN ODT4 MG PO (20:13)
[2019-09-11 21:14] VITALS: BP 143/74; PULSE 77
== END 2019-09-11 21:16 | disposition home or self-care (01) ==
LOC: COL.ER 14:28
PROVIDERS: Emergency Medicine
DX: E11.42 Type 2 diabetes mellitus with diabetic polyneuropathy (principal); R11.2 Nausea with vomiting, unspecified; I25.10 Atherosclerotic heart disease of native coronary artery without angina pectoris; I10 Essential (primary) hypertension; E78.5 Hyperlipidemia, unspecified; F17.210 Nicotine dependence, cigarettes, uncomplicated; Z95.1 Presence of aortocoronary bypass graft; Z79.82 Long term (current) use of aspirin; Z79.02 Long term (current) use of antithrombotics/antiplatelets; Z79.4 Long term (current) use of insulin
CPT/HCPCS: J2405; J2550; J7030

== ENCOUNTER 2019-09-12 17:18 | Emergency (ER) | payer MEDICARE ==
[~2019-09-12] VITALS: Ht 167.6 cm; Wt 74.5 kg
[2019-09-12 17:31] VITALS: TEMP 98.3
[2019-09-12 17:55] LABS: BASO % 0.4 % (0.0-2.0); EOS % 0.2 % (0-4.0); GRAN # 7.6 (1.4-6.5); GRAN % 73.9 % (42.2-75.2); HEMOGLOBIN 12.1 g/dl (13.5-18.0); LYMPH # 1.4 (1.2-3.4); LYMPH % 13.8 % (20.0-51.0); MEAN CELL VOLUME 89 fl (80.0-100.0); MEAN CORPUSCULAR HEMOGLOBIN 30 pg (27.0-31.0); MEAN CORPUSCULAR HGB CONC 33 g/dl (33.0-37.0); MEAN PLATELET VOLUME 9.4 fl (7.4-10.4); MONO # 1.2 (0.1-0.6); MONO % 11.3 % (1.7-9.3); PLATELET COUNT 355 K/mm3 (130-400); RED BLOOD COUNT 4.07 M/mm3 (4.20-5.60)
[2019-09-12 17:57] LABS: HEMATOCRIT 36.2 % (42.0-52.0)
[2019-09-12 18:02] LABS: PROTHROMBIN TIME 11.2 SECONDS (9.7-12.8)
[2019-09-12 18:04] LABS: PARTIAL THROMBOPLASTIN TIME 31.6 SECONDS (26.0-37.0)
[2019-09-12 18:21] LABS: ALANINE AMINOTRANSFERASE 19 U/L (21-72); ALBUMIN 3.8 gm/dL (3.5-5.0); ALKALINE PHOSPHATASE 101 U/L (50-136); ANION GAP 6 mmol/L (7-16); AST,SGOT 52 U/L (15-37); BLOOD UREA NITROGEN 35 mg/dL (9-20); CALCIUM 8.9 mg/dL (8.4-10.2); CARBON DIOXIDE 29 mmol/L (22-30); CHLORIDE 101 mmol/L (98-107); CREATININE, serum 1.17 (0.66-1.25); GLUCOSE 194 mg/dL (74-106); LIPASE 411 U/L (23-300); POTASSIUM 3.3 mmol/L (3.4-5.0); SODIUM 137 mmol/L (137-145); TOTAL PROTEIN 6.8 gm/dL (6.4-8.2)
[2019-09-12 18:24] LABS: C-REACTIVE PROTEIN < 0.5 mg/dL (0.0-0.9)
[2019-09-12 18:31] LABS: TROPONIN-I < 0.012 ng/mL (0.000-0.035)
[2019-09-12 20:30] VITALS: BP 146/78; PULSE 62
== END 2019-09-12 20:48 | disposition home or self-care (01) ==
LOC: COL.ER 17:18
PROVIDERS: Family Medicine
DX: K86.1 Other chronic pancreatitis (principal); R07.89 Other chest pain; I10 Essential (primary) hypertension; E11.9 Type 2 diabetes mellitus without complications; Z79.82 Long term (current) use of aspirin; Z79.4 Long term (current) use of insulin
CPT/HCPCS: J2270

== ENCOUNTER → 2019-11-27 | Outpatient (CLI) | payer MEDICARE | LOC: COL.RAD 13:00 | DX: I82.621 Acute embolism and thrombosis of deep veins of right upper extremity (principal); R60.0 Localized edema; R06.02 Shortness of breath | CPT/HCPCS: Q9967 ==

== ENCOUNTER → 2020-01-08 | Outpatient (CLI) | payer OTHER | LOC: COL.RAD 10:56 | DX: Z01.812 Encounter for preprocedural laboratory examination (principal); K29.70 Gastritis, unspecified, without bleeding; K85.90 Acute pancreatitis without necrosis or infection, unspecified; K52.9 Noninfective gastroenteritis and colitis, unspecified; K44.9 Diaphragmatic hernia without obstruction or gangrene | CPT/HCPCS: Q9967 ==

== ENCOUNTER → 2020-01-18 | Outpatient (CLI) | payer MEDICARE | LOC: COL.RAD 12:30 | DX: I82.A11 Acute embolism and thrombosis of right axillary vein (principal); R93.89 Abnormal findings on diagnostic imaging of other specified body structures; R91.8 Other nonspecific abnormal finding of lung field | CPT/HCPCS: Q9967 ==

== ENCOUNTER 2020-03-01 07:27 | Inpatient (IN) | payer MEDICARE ==
[~2020-03-01] VITALS: Ht 167.6 cm; Wt 94.5 kg
[2020-03-01 11:15] VITALS: BP 218/99; PULSE 87
[2020-03-01 11:58] VITALS: BP 167/82; PULSE 87; TEMP 97.5
[2020-03-01 12:03] VITALS: BP 167/82; PULSE 87; TEMP 97.5
[2020-03-01 12:05] VITALS: BP 167/82; PULSE 87; TEMP 97.5
[2020-03-01 13:28] LABS: COLLECTION METHOD CLEAN CATCH
[2020-03-01 13:41] LABS: PH 7 (5-8); SQUAMOUS EPITHELIAL 0-2 /hpf; URINE APPEARANCE Clear; URINE BACTERIA None Seen /hpf; URINE BILIRUBIN Negative (NEGATIVE); URINE BLOOD Negative (NEGATIVE); URINE COLOR Yellow; URINE GLUCOSE 3+ (NEGATIVE); URINE KETONE Trace (NEGATIVE); URINE LEUKOCYTE ESTERASE Negative (NEGATIVE); URINE NITRATE Negative (NEGATIVE); URINE PROTEIN(semi-quant) 3+ (NEGATIVE); URINE UROBILINOGEN Negative (NEGATIVE)
[2020-03-01 13:50] LABS: TRICYCLIC ANTIDEPRESS URINE NEGATIVE
[2020-03-01] MEDS ORDERED: PROTONIX20 MG PO (15:51)
[2020-03-01] MEDS ORDERED: ELIQUIS 5MG PO (15:56)
[2020-03-01] MEDS ORDERED: CYMBALTA 20MG20 MG PO (16:05)
[2020-03-01] MEDS ORDERED: DEMADEX 20MG20 M1 PO (16:07)
[2020-03-01] MEDS ORDERED: K-DUR 10 MEQ T10 MEQ PO (16:14)
[2020-03-01] MEDS ORDERED: NORVASC 5MG5 MG/TAB PO (16:20)
[2020-03-01] MEDS ORDERED: PROBIOTIC GOLD1 EACH PO (16:24)
[2020-03-01] MEDS ORDERED: STOOL SOFTENER100 M2 PO (16:30)
[2020-03-01] MEDS ORDERED: LEVEMIR100 U/ML SQ (16:43)
[2020-03-01 17:23] VITALS: BP 154/70; PULSE 72; TEMP 98
[2020-03-01 19:32] VITALS: BP 136/63; PULSE 71; TEMP 97.3
--- NOTE | 2020-03-01 19:36 | NUR ---
Patient was transfered from [facility] with abd pain and diagnosis of Bilateral hydronephrosis. bladder scan show over 1315ml fluid. blas cathere placed. Iv FLUIDS started. total of 1300ml blas output. pain managed with dilaudid. Head CT was completed because patient was complaining of headache. patient on clear liquid at this time.
--- NOTE | 2020-03-01 20:17 | NUR ---
Resting in bed. Assessment complete. Lungs dimished throughout. No shortness of breath. Heart sounds normal. Bowels active x4. Pulses present throughout. No edema noted. IV left AC infusing without complications. Patient reporting nausea and ABD pain. 01/09. Was provided with PRN dilaudid and zofran. Patient sheets changed and gown cleaned. Sorenson to dependent drainage with reddish urine present. Denies other needs at this time. Will continue to montior.
--- NOTE | 2020-03-01 22:05 | NUR ---
Resting in bed asleep at this time. Call light in reach.
[2020-03-02] VITALS (11 sets, daily range): BP systolic 131–195; BP diastolic 58–88; PULSE 63–82; TEMP 97.5–98.2
--- NOTE | 2020-03-02 00:01 | NUR ---
Reported 5/10 pain in ABD. Provided with PRN dilaudid. Denies other needs at this time. Call light in reach.
--- NOTE | 2020-03-02 04:06 | NUR ---
Patient having minimal output during shift. From 1900 to 0230, 150ml output. Bladder scanner showing 17ml. Urine dark and tea colored with clots. Spoke with Danielle REYES. Okay to irrigate and change blas if needed. Blas irrigated. Able to push fluid in, cannot withdrawl irrigation fluid. Blas exchanged. Old blas has approx 5 to 6 inches of clotting present when removed. New blas placed and blocked immediately. House supervisior in room and attempted to irrigate new blas. Unable to withdrawl irrigation solution. Spoke with Danielle REYES. Call urology. Spoke with Dr. Garcia at [phone]. Updated Dr. Garcia. Add patient on OR schedule for cysto with evacuation of clots at 0800, "patient blas will be okay til then, keep npo." Danielle REYES and grand isle supervisior updated at this time. Patient educated on change in plan of care and okay with cysto. Provided with PRN dilaudid for upper quad ABD. Patient denies needs. Will continue to closely monitor.
--- NOTE | 2020-03-02 05:17 | NUR ---
Resting in bed. Denies needs. Continues to have minimal blas output. Will monitor.
--- NOTE | 2020-03-02 06:25 | NUR ---
Patient blas continues to have minimal output. To OR for cysto and blood clot evac. Given dilaudid for pain control throughout night. Otherwise uneventful. Resting in bed this AM.
[2020-03-02 06:55] LABS: HEMATOCRIT 37.9 % (42.0-52.0); HEMOGLOBIN 12.1 g/dl (13.5-18.0); MEAN CELL VOLUME 88 fl (80.0-100.0); MEAN CORPUSCULAR HEMOGLOBIN 28 pg (27.0-31.0); MEAN CORPUSCULAR HGB CONC 32 g/dl (33.0-37.0); MEAN PLATELET VOLUME 9.7 fl (7.4-10.4); PLATELET COUNT 320 K/mm3 (130-400); RED BLOOD COUNT 4.31 M/mm3 (4.20-5.60); REDCELL DISTRIBUTION WIDTH-CV 15.7 % (11.5-14.5)
--- NOTE | 2020-03-02 06:55 | NUR ---
Report given to HERNAN Guardado
[2020-03-02 07:10] LABS: ALBUMIN 4.1 gm/dL (3.5-5.0); BILIRUBIN,TOTAL 0.6 mg/dL (0.0-1.0); CALCIUM 8.8 mg/dL (8.4-10.2); CREATININE, serum 2.64 (0.66-1.25); POTASSIUM 4.6 mmol/L (3.4-5.0); TOTAL PROTEIN 7.5 gm/dL (6.4-8.2)
--- NOTE | 2020-03-02 07:45 | NUR ---
Patient is going down to OR at this time for Cystoscopy with , consent signed and he has been NPO sence 033
--- NOTE | 2020-03-02 09:00 | NUR ---
patient arrived back to room 309 from PACU at this time, he is alert/oriented, vital signs stable/ he is hypternsive and I will give all scheduled meds at thistime, he denies pain, will continue to monitor
[2020-03-02 09:08] LABS: BAND 25 % (0-10); LYMPHOCYTE 5 % (20.0-51.0); NEUTROPHILS 64 % (42.0-75.2)
[2020-03-02 09:09] LABS: PLATELET ESTIMATE NORMAL (NORMAL)
--- NOTE | 2020-03-02 11:30 | NUR ---
Plan: Plan to return home in [place] with Angela . Assessment: Patient reports that he resides in with his and that his PCP is Kendra Chamberlain and Dr. Alvarez. Patient reports that he has a prothestic leg-R. Patient reports that he has a walker, electric chair and ramp to his van. Patient reports that he is still driving himself without difficulty. Patient reports that he receives all of his medication through mail at the [facility] or [facility]. Patient reports that he has support through [facility] health care out of [place] 1x a week and would like to increase services temp. Action: LESLEY will fax a CELSO with additional supports to [facility]. LESLEY educated patient about resources in the area. No addtional concern identified at this time.
[2020-03-02 15:27] LABS: CALCIUM 7.9 mg/dL (8.4-10.2); CREATININE, serum 2.45 (0.66-1.25); POTASSIUM 4.3 mmol/L (3.4-5.0)
--- NOTE | 2020-03-02 21:15 | NUR ---
Resting in bed. Assessment complete. Lungs clear. Heart sounds normal. Bowels hypoactive. Pulses present. No edema noted. IV left AC without complications. Reporting 7/10 ABD pain and provided with PRN norco. Sorenson to dependent drainage without complications-clear yellow urine. BP elevated. Recheck and continues to be elevated. Spoke with Danielle REYES. Added order for hydralazine. Rechecked prior to admistration of hydralazine BP 154 systolic. Held hydralazine. Will continue to monitor. Call light in reach.
--- NOTE | 2020-03-02 21:15 | NUR ---
Resting in bed. Assessment complete. Lungs clear. Heart sounds normal. Bowels active x4. Pulses present. No edema noted. IV left AC without complications. Reporting 7/10 ABD pain and provided with PRN norco. Sorenson to dependent drainage without complications-clear yellow urine. BP elevated. Recheck and continues to be elevated. Spoke with Danielle REYES. Added order for hydralazine. Rechecked prior to admistration of hydralazine BP 154 systolic. Held hydralazine. Will continue to monitor. Call light in reach.
--- NOTE | 2020-03-02 22:30 | NUR ---
Resting in bed. Denies needs. Call light in reach.
[2020-03-03 00:15] VITALS: BP 141/57; PULSE 72; TEMP 98.2
[2020-03-03 03:57] VITALS: BP 151/67; PULSE 79; TEMP 98.2
--- NOTE | 2020-03-03 06:37 | NUR ---
Patient had uneventful night. Resting in bed this AM. Sorenson without complications. Call light in reach.
--- NOTE | 2020-03-03 06:51 | NUR ---
Report given to HERNAN Guardado
[2020-03-03 08:19] LABS: BASO % 0.4 % (0.0-2.0); EOS # 0.1 (0.0-0.7); EOS % 1.3 % (0-4.0); GRAN # 8.2 (1.4-6.5); GRAN % 73.6 % (42.2-75.2); LYMPH # 1.6 (1.2-3.4); LYMPH % 14.3 % (20.0-51.0); MEAN CELL VOLUME 88 fl (80.0-100.0); MEAN CORPUSCULAR HGB CONC 32 g/dl (33.0-37.0); MEAN PLATELET VOLUME 10.2 fl (7.4-10.4); MONO # 1.1 (0.1-0.6); MONO % 10.2 % (1.7-9.3); PLATELET COUNT 260 K/mm3 (130-400); RED BLOOD COUNT 3.47 M/mm3 (4.20-5.60); REDCELL DISTRIBUTION WIDTH-CV 15.6 % (11.5-14.5)
[2020-03-03 08:28] VITALS: BP 185/72; PULSE 79; TEMP 98.2
[2020-03-03 08:33] LABS: CALCIUM 7.8 mg/dL (8.4-10.2); CREATININE, serum 1.88 (0.66-1.25); HEMATOCRIT 30.4 % (42.0-52.0); HEMOGLOBIN 9.8 g/dl (13.5-18.0); MEAN CORPUSCULAR HEMOGLOBIN 28 pg (27.0-31.0); POTASSIUM 3.9 mmol/L (3.4-5.0)
--- NOTE | 2020-03-03 08:52 | NUR ---
Assessment completed, drowsy but arousable, vital signs stable, denies pain at this time, abdomen is soft and BS +, blas patent with good UOP, creat 1.88 which is down from yesterday, IVF continue, he is not eating much but is tolerating PO liquids, resting quietly at thistime and denies other needs currently
[2020-03-03 12:38] VITALS: BP 165/72; PULSE 69; TEMP 98.5
[2020-03-03 16:28] VITALS: BP 184/111; PULSE 88; TEMP 98.7
[2020-03-03 20:06] VITALS: BP 133/54; PULSE 68; TEMP 98
[2020-03-04] VITALS (9 sets, daily range): BP systolic 108–183; BP diastolic 53–93; PULSE 70–89; TEMP 97.5–98.6
--- NOTE | 2020-03-04 05:17 | NUR ---
Patient's blood sugar at 0400H was 56mg/dl. Snacks were given to patient. Rechecked glucose, now at 77mg/dl. Updated Danielle REYES, via phone call regarding low blood sugar. Blood pressure was elevated at 183/75. Hydralazine IV given.
[2020-03-04 07:08] LABS: BASO # 0.1 (0.0-0.2); BASO % 0.4 % (0.0-2.0); CALCIUM 8.6 mg/dL (8.4-10.2); CREATININE, serum 1.49 (0.66-1.25); EOS # 0.1 (0.0-0.7); EOS % 0.8 % (0-4.0); GRAN % 84.2 % (42.2-75.2); HEMATOCRIT 38.1 % (42.0-52.0); LYMPH # 0.8 (1.2-3.4); LYMPH % 6.2 % (20.0-51.0); MEAN CELL VOLUME 86 fl (80.0-100.0); MEAN CORPUSCULAR HEMOGLOBIN 29 pg (27.0-31.0); MEAN CORPUSCULAR HGB CONC 33 g/dl (33.0-37.0); MEAN PLATELET VOLUME 9.8 fl (7.4-10.4); MONO # 1.1 (0.1-0.6); PLATELET COUNT 286 K/mm3 (130-400); POTASSIUM 3.8 mmol/L (3.4-5.0); RED BLOOD COUNT 4.42 M/mm3 (4.20-5.60); REDCELL DISTRIBUTION WIDTH-CV 14.7 % (11.5-14.5)
[2020-03-04 07:09] LABS: HEMOGLOBIN 12.6 g/dl (13.5-18.0)
--- NOTE | 2020-03-04 09:30 | NUR ---
PT COMPLAINING OF PAIN AND DISCOMFORT AND NAUSEA. PT STATED PAIN IN ABD A CRAMPING PAIN. PT WAS GRIMACING AND MOANING WHEN ASKED ABOUT IT, PT WOULD ALSO FALL ASLEEP IN ROOM IF I WAS NOT TALKING TO HIM. ZOFRAN, NORCO, AND HYDRALAZINE GIVEN WITH NORMAL MEDS. BP RECHECKED 15MIN AFTER AND IT WAS WITHIN NORMAL RANGE. PT REPORTING BEING COLD, WARM BLANKET BROUGHT IN FOR PT. INSULIN NOT REQUIRED AT THIS TIME. BED IN LOW POSITION. NO OTHER NEEDS AT THIS TIME.
--- NOTE | 2020-03-04 11:32 | NUR ---
PT COMPLAINING OF ABD PAIN NOT RELIEVED BY NORCO. DILAUDID 1MG GIVEN, WILL REASSESS SOON.
[2020-03-04 13:20] LABS: LIPASE 102 U/L (23-300)
--- NOTE | 2020-03-04 13:22 | NUR ---
BP REASSESSED AND WITHIN NORMAL LIMITS.
[2020-03-04 13:35] LABS: TROPONIN-I < 0.012 ng/mL (0.000-0.035)
--- NOTE | 2020-03-04 16:06 | NUR ---
PT STATES PAIN HAS GONE DOWN TO 3 AFTER DILAUDID ADMINISTRATION.
--- NOTE | 2020-03-04 16:43 | NUR ---
Delinquent Tax Collector contacted Payton at [facility] and faxed referral. SW will continue to follow.
--- NOTE | 2020-03-04 17:02 | NUR ---
PT PAIN MANAGED WITH DILAUDID DURING SHIFT. PT REFUSING MEALS BUT EATING JELLOW. NO OTHER NEEDS AT THIS TIME.
--- NOTE | 2020-03-04 17:23 | NUR ---
PT BP RECHECKED NOW THAT HYDRALAZINE IS AVAILABLE TO GIVE. BP 145/72. NO INTERVENTION NECESSARY
--- NOTE | 2020-03-04 20:00 | NUR ---
Assessment complete at this time. Patient complains of pain 6/10 in his abdomen, which is not worse with palpation. His blas is draining clear, yellow urine. No edema is present. Two small diabetic ulcers are present on patient's left great toe; they are open to air and not draining or causing pain. No new concerns at this time. Will continue to monitor.
[2020-03-05 00:30] VITALS: BP 125/52; PULSE 65; TEMP 97.9
[2020-03-05 03:55] VITALS: BP 151/59; PULSE 69; TEMP 98
--- NOTE | 2020-03-05 05:50 | NUR ---
Patient has had an uneventful, restful night with minimal complaints. Pain level was 6/10 and dilaudid was administered prior to him falling asleep. Another dose of dilaudid was administered this am for pain 5/10. Will continue to monitor.
[2020-03-05 06:49] LABS: BASO # 0.1 (0.0-0.2); BASO % 0.7 % (0.0-2.0); EOS # 0.4 (0.0-0.7); EOS % 3.7 % (0-4.0); GRAN # 6.8 (1.4-6.5); GRAN % 69.3 % (42.2-75.2); LYMPH # 1.4 (1.2-3.4); LYMPH % 13.8 % (20.0-51.0); MEAN CELL VOLUME 86 fl (80.0-100.0); MEAN CORPUSCULAR HGB CONC 33 g/dl (33.0-37.0); MEAN PLATELET VOLUME 10.2 fl (7.4-10.4); MONO # 1.2 (0.1-0.6); MONO % 12.1 % (1.7-9.3); PLATELET COUNT 242 K/mm3 (130-400); RED BLOOD COUNT 3.67 M/mm3 (4.20-5.60); REDCELL DISTRIBUTION WIDTH-CV 15.2 % (11.5-14.5)
[2020-03-05 06:53] LABS: ALBUMIN 3.1 gm/dL (3.5-5.0); BILIRUBIN,TOTAL 0.5 mg/dL (0.0-1.0); CALCIUM 8.2 mg/dL (8.4-10.2); CREATININE, serum 1.63 (0.66-1.25); MAGNESIUM 1.9 mg/dL (1.6-2.3); POTASSIUM 3.7 mmol/L (3.4-5.0); TOTAL PROTEIN 6.2 gm/dL (6.4-8.2)
[2020-03-05 06:55] LABS: HEMATOCRIT 31.7 % (42.0-52.0); HEMOGLOBIN 10.3 g/dl (13.5-18.0); MEAN CORPUSCULAR HEMOGLOBIN 28 pg (27.0-31.0)
[2020-03-05 07:27] VITALS: BP 159/68; PULSE 70; TEMP 97.8
--- NOTE | 2020-03-05 07:30 | NUR ---
PT AOX4. 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 PT CAN LIFT AND HOLD ARMS AND LEGS. PT REPORTING PAIN 7/10 SO DILAUDID GIVEN. PT REPORTING NAUSEA BUT DENIES NEED FOR ZOFRAN. OTHER MEDICATIONS GIVEN, ASSESSMENT PERFORMED, BED IN LOW POSITION. CATHETER PATENT AND DRAINING CLEAR YELLOW URINE. PT REPORTS ABD PAIN AN ACHE. NO OTHER NEEDS AT THIS TIME.
[2020-03-05 12:09] VITALS: BP 155/66; PULSE 66; TEMP 97.7
--- NOTE | 2020-03-05 13:30 | NUR ---
CISSE DISCONTINUED. WILL CHECK RESIDUAL URINE IN BLADDER IN 6-8 HOURS
--- NOTE | 2020-03-05 15:25 | NUR ---
Angélica, at [facility], reports that they already have the patient on for services and will be able to resume services for him upon discharge. SW to continue to follow.
[2020-03-05 16:31] VITALS: BP 145/63; PULSE 72; TEMP 97.8
--- NOTE | 2020-03-05 16:31 | NUR ---
PT HAS NOT BEEN ABLE TO URINATE YET.
--- NOTE | 2020-03-05 17:07 | NUR ---
PT REPORTS LITTLE PAIN RELIEF WITH SECOND DOSE OF NORCO. DILUADID GIVEN WHEN DUE. PT HAS NOT YET URINATED. GAVE HIM INSTRUCTIONS WHEN HE DOES GO SO THAT A RESIDUAL BLADDER SCAN CAN BE PERFORMED. PT STILL HAS FLUIDS INFUSING, PT AOX4, CURRENTLY UP TO CHAIR. NO OTHER NEEDS AT THIS TIME.
--- NOTE | 2020-03-05 18:13 | NUR ---
BLADDER SCANNED PT AFTER VOIDING AND RESIDUAL OF 27ML SHOWED ON MONITOR. WILL RETEST LATER DUE TO PT SITTING UPRIGHT DURING TEST. PT SAID HE DOESN'T KNOW IF HE FEELS LIKE HES RETAINING URINE. URINE DARK CHARLES IN COLOR, CLEAR.
--- NOTE | 2020-03-05 20:00 | NUR ---
Patient's BP 169/73 at this time. 10mg apresoline administered. Patient also complains of pain 02/08. 2 tabs [place] administered. Will continue to monitor.
--- NOTE | 2020-03-05 20:30 | NUR ---
Patient complains of excrutiating abdominal pain at this time, claiming [place] is not taking affect. Danielle Ulises is contacted and orders STAT labs. Patient has voided today, per day shift report, but states he does not feel the urge to void at this time. Bladder scan performed at 191 ml is currently in the bladder PRE void. Patient states he has not had a bowel movement since 02/26. There is no stool in the rectal wall. Will continue to monitor.
[2020-03-05 21:28] LABS: BASO # 0.1 (0.0-0.2); BASO % 0.6 % (0.0-2.0); EOS # 0.5 (0.0-0.7); EOS % 5.3 % (0-4.0); GRAN # 6.6 (1.4-6.5); GRAN % 65.1 % (42.2-75.2); HEMOGLOBIN 11.7 g/dl (13.5-18.0); LYMPH # 1.9 (1.2-3.4); LYMPH % 18.7 % (20.0-51.0); MEAN CELL VOLUME 85 fl (80.0-100.0); MEAN CORPUSCULAR HEMOGLOBIN 29 pg (27.0-31.0); MEAN CORPUSCULAR HGB CONC 34 g/dl (33.0-37.0); MEAN PLATELET VOLUME 9.9 fl (7.4-10.4); MONO % 10.1 % (1.7-9.3); PLATELET COUNT 227 K/mm3 (130-400); RED BLOOD COUNT 4.09 M/mm3 (4.20-5.60); REDCELL DISTRIBUTION WIDTH-CV 15.2 % (11.5-14.5)
[2020-03-05 21:38] LABS: ALBUMIN 3.7 gm/dL (3.5-5.0); BILIRUBIN,TOTAL 0.6 mg/dL (0.0-1.0); CALCIUM 8.9 mg/dL (8.4-10.2); CREATININE, serum 1.48 (0.66-1.25); POTASSIUM 3.9 mmol/L (3.4-5.0); TOTAL PROTEIN 7.1 gm/dL (6.4-8.2)
[2020-03-05 21:47] LABS: HEMATOCRIT 34.7 % (42.0-52.0)
--- NOTE | 2020-03-05 22:10 | NUR ---
Patient is transferred by this RN to CT of abdomen with contrast at this time. Patient tolerates transfer and contrast dye well. Results show constipation. Will continue to monitor and follow Dr's orders.
[2020-03-05 23:10] VITALS: BP 117/53; PULSE 78; TEMP 97.8
[2020-03-06] VITALS (7 sets, daily range): BP systolic 140–196; BP diastolic 55–85; PULSE 78–97; TEMP 97.9–98.6
[2020-03-06 08:38] LABS: BASO # 0.1 (0.0-0.2); BASO % 0.6 % (0.0-2.0); EOS # 0.5 (0.0-0.7); EOS % 4.5 % (0-4.0); GRAN % 74.3 % (42.2-75.2); HEMOGLOBIN 11.1 g/dl (13.5-18.0); LYMPH # 1.2 (1.2-3.4); LYMPH % 11.4 % (20.0-51.0); MEAN CELL VOLUME 86 fl (80.0-100.0); MEAN CORPUSCULAR HEMOGLOBIN 28 pg (27.0-31.0); MEAN CORPUSCULAR HGB CONC 33 g/dl (33.0-37.0); PLATELET COUNT 248 K/mm3 (130-400); RED BLOOD COUNT 3.94 M/mm3 (4.20-5.60)
[2020-03-06 08:39] LABS: HEMATOCRIT 33.7 % (42.0-52.0)
[2020-03-06 08:47] LABS: CALCIUM 8.5 mg/dL (8.4-10.2); CREATININE, serum 1.4 (0.66-1.25); POTASSIUM 3.6 mmol/L (3.4-5.0)
--- NOTE | 2020-03-06 08:57 | NUR ---
Assessment complete. Patient laying in bed eyes closed, easily arousable to voice. Patient is currently extremely nauseated at this time, dry heaving in my presence. PO medications were refused by patient as he could not even take a sip of water. Initial blood sugar this am was 65, patient refused PO juice or food. Rechecked and it was 68, oral glucose gel required with BS of 60 or less, holding for now, will continue to monitor. Patients pressure was 196/79, with refusal of morning BP medications due to nausea, PRN IV hydralazine was provided to the patient, will recheck BP in 30 mins. Informed patient he also recieved the subQ medication to help his constipation. PAtient was resting with eyes closed when I left the room. Will continue to monitor.
[2020-03-06 10:09] LABS: PARTIAL THROMBOPLASTIN TIME 32.5 SECONDS (26.0-37.0)
--- NOTE | 2020-03-06 12:34 | NUR ---
Blood surgars have been stable in the high 60s, and most recent 87. Continuing to monitor. Enema was administered to patient and he was able to have a bowel movment within 15 minutes, it was large. Patient returned to bed feeling slightly better. Nausea is persistent, PRN zofran will be provided for this.
--- NOTE | 2020-03-06 15:27 | NUR ---
Patient remains nauseated with high blood pressure at this time. mahsa Sanz has been notified. Additional PRN hydralazine will be provided for his pressure at this time. Patient has ceased the dry heaving at this time and is resting quietly with eyes closed. Continuing to monitor. Call light is in reach.
--- NOTE | 2020-03-06 16:29 | NUR ---
Digital Content Manager attempted to follow up with patient who states he does not feel well and wants to rest. SW attempted to contact patient's , Angela and left a message. SW will continue to follow.
--- NOTE | 2020-03-06 17:32 | NUR ---
Nausea has persisted through the day, Umu MARIEE was notified again and suggested phenergan and an NG tube, as well as a surgical consult. Phenergan has been administered at this time and patient is resting with eyes closed at this time. Per Dr. Nelson, surgical consult, hold off on NG tube if Phenergan is able to control the nausea. Will continue to monitor closely. Call light is in reach.
--- NOTE | 2020-03-06 19:00 | NUR ---
Received report from Ines. Seen patient asleep in bed. With Iv on left AC infusing NS at 75ml/hr and heparin at 10ml/hr. Call light within reach.
--- NOTE | 2020-03-06 21:20 | NUR ---
Patient refuses his night medicines and told me to leave him alone. Insulin Levemir not given as patient haven't eaten his dinner, blood glucose is 105mg/dl.
--- NOTE | 2020-03-06 22:00 | NUR ---
Patient didn't urinate yet since the start of the shift. Bladder scan done and it shows 663ml of urine. This nurse asked patient if he thinks he need to urinate and he said no. I told him he has about 600 ml of urine and he said he doesn't feel like he needs to urinate and to just let him sleep.
--- NOTE | 2020-03-06 22:20 | NUR ---
This nurse informed Danielle REYES via phone call that patient's bladder scan shows 663ml of urine and patient doesn't feel like he needs to urinate. She ordered to insert a blas catheter and inform her if it is not draining since he had problems with this few days ago.
--- NOTE | 2020-03-06 22:48 | NUR ---
This nurse and Amanda RN went to patient's room to inform him that we need to insert a blas catheter due to urinary retention. Dilaudid IV given as well. Patient verbalizes understanding.
--- NOTE | 2020-03-06 23:15 | NUR ---
Explained blas catheter insertion to patient. Used Korean 18 blas catheter in a sterile technique. Drained 750ml of clear, yellow urine.
[2020-03-07] VITALS (8 sets, daily range): BP systolic 140–178; BP diastolic 58–71; PULSE 72–92; TEMP 97.5–99.4
--- NOTE | 2020-03-07 04:35 | NUR ---
Patient asleep. Not in pain. Blood pressure is elevated again. 173/70. Hydralazine IV PRN given.
[2020-03-07 07:48] LABS: CALCIUM 8.3 mg/dL (8.4-10.2); CREATININE, serum 1.48 (0.66-1.25); POTASSIUM 3.6 mmol/L (3.4-5.0)
--- NOTE | 2020-03-07 10:37 | NUR ---
Rounding with Dr. Ruby and team-called , Angela, to include her with discussions with pt and his status. Reviewed plan, test results of CT. Bowels are still having difficulty-Dr. Ruby informed them that this could take some days to improve. Sorenson has been reinserted with 750ml returned-pt had been unable to void. Dr. Ruby answered all of pt's/'s questions and they verbalized understanding.
--- NOTE | 2020-03-07 10:52 | NUR ---
Assessment complete. Patient resting in bed. States his nausea is okay at this time but the pain is persistent, PRN pain medication has been given for this. IV site flushes and infuses well but dressing was bloody, this was cleaned and replaced. Patient refused all PO medications and is taking very little fluid by mouth. He has had no episodes of dry heaving this morning but when he sits up he immediatly begins to feel nauseous. Sorenson is patent draining clear, light yellow urine at thsi time. has been updated. No other needs were expressed, call light is in reach.
--- NOTE | 2020-03-07 13:20 | NUR ---
Cement Finishing Supervisor attended clinical rounds with the team and patient's , Angela is on speakerphone. Following rounds, LESLEY contacted Angela to review discharge plan. Angela advised patient will return home upon discharge with [facility]. Angela reports patient is normally very independent. LESLEY faxed updates to Payton at [place] and will continue to follow.
--- NOTE | 2020-03-07 18:10 | NUR ---
Patient has had a much better day then yesterday. He has had no nausea and no vomiting through the day. Pain is managed with PRN dilaudid at this time. he requests it prior to blood draws. IV site was bloody again and attempts ewere made for a new IV but were unsuccessful. Left AC site is stable with no signs if inflitration or swelling but it leaks a small amount of blood leading to a saoiled dressing. Dressing was last changed at 1600. Heparin continues to infuse with LR, heparin protocol is being followed. Sorenson is patent draining clear yellow urine. Patient has been eating jello and taking some PO fluids but still refuses PO medications. No other needs were expressed at this time, call light is in reach.
--- NOTE | 2020-03-07 21:03 | NUR ---
PT REFUSED TO TAKE 10 UNITS OF NOVOLOG, EVEN THOUGH BS 303. PT ADVISED THAT HE WOULD DROP TO QUICKLY AND DID NOT WANT TO DO THAT. ONLY WOULD TAKE 5 UNITS OF INSULIN.
--- NOTE | 2020-03-07 21:21 | NUR ---
PT IN BED WITH HOB ELEVATED. PT A/O X3, C/O PAIN IN ABDOMEN 02/08 THAT IS SHARP. PT HAS HAD NO N/V. PT VERY TALKATIVE AND PLEASANT. PT EAT MOST OF HIS SUPPER. REFUSED FULL DOSE OF NOVOLOG, ONLY WOULD TAKE 5 UNITS. PT HAS CALL LIGHT WITHIN REACH AND NO OTHER NEEDS AT THIS TIME.
--- NOTE | 2020-03-07 21:36 | NUR ---
PT WANTS ALL FOUR BEDSIDE RAILS UP. REFUSES TO PUT ONE DOWN.
--- NOTE | 2020-03-07 23:43 | NUR ---
Notified Dr. Esquivel in reference to Pt's BS at 266 and that Pt does not want to take the high dose of insulin and is refusing. Dr. Esquivel gave orders to switch Pt to a moderate S/S insulin.
[2020-03-08 00:21] VITALS: BP 106/36; PULSE 70; TEMP 98.1
[2020-03-08 03:52] VITALS: BP 142/59; PULSE 65; TEMP 99
--- NOTE | 2020-03-08 06:22 | NUR ---
UNEVENTFUL NIGHT FOR PT. NO ISSUES. PT WAS UP MOST OF NIGHT WATCHING TV AND DID HAVE SOME SNACKS. PT ENCOURAGED TO REPOSITION. CALL LIGHT WITHIN REACH.
[2020-03-08 07:41] VITALS: BP 142/58; PULSE 65; TEMP 98.8
--- NOTE | 2020-03-08 07:46 | NUR ---
Patient is alert and oriented. pain at 4/10 in his abdomen. report feeling better today. call light within reach. patient resting in bed at this time.
[2020-03-08 07:55] LABS: CREATININE, serum 2.04 (0.66-1.25); POTASSIUM 3.8 mmol/L (3.4-5.0)
[2020-03-08 07:59] LABS: MEAN CELL VOLUME 88 fl (80.0-100.0); MEAN CORPUSCULAR HGB CONC 33 g/dl (33.0-37.0); PLATELET COUNT 237 K/mm3 (130-400); RED BLOOD COUNT 3.22 M/mm3 (4.20-5.60); REDCELL DISTRIBUTION WIDTH-CV 15.9 % (11.5-14.5)
[2020-03-08 08:02] LABS: HEMATOCRIT 28.2 % (42.0-52.0); HEMOGLOBIN 9.2 g/dl (13.5-18.0); MEAN CORPUSCULAR HEMOGLOBIN 29 pg (27.0-31.0)
--- NOTE | 2020-03-08 11:08 | NUR ---
Initial visit; Patient thanked Dish Carrier for looking in on him, he recalls Dish Carrier from a prior visit. Dish Carrier gave patient a prayer card and wished him well.
[2020-03-08 11:55] VITALS: BP 130/48; PULSE 79; TEMP 98.4
--- NOTE | 2020-03-08 13:55 | NUR ---
Glass Furnace Tender followed up with patient who advised he is feeling much better. Patient states he is very independent at home. Patient reports he likes to cook and work in his garden. Patient states he either uses his electric chair or can walk with his prosthetic. Patient states he is agreeable to continue services with [facility]. SW will continue to follow.
[2020-03-08 16:16] VITALS: BP 137/71; PULSE 72; TEMP 98
--- NOTE | 2020-03-08 18:36 | NUR ---
hepxa at 0.64, dose at 10mL/hr. currently await lab result on hepxa for 1830 draw. patient is resting in bed at this time.
[2020-03-08 19:48] VITALS: BP 133/58; PULSE 71; TEMP 98.3
[2020-03-09 00:02] VITALS: BP 126/58; PULSE 69; TEMP 97.8
[2020-03-09 03:14] VITALS: BP 149/63; PULSE 82; TEMP 97.7
--- NOTE | 2020-03-09 05:38 | NUR ---
PATIENT HAD A PRETTY UNEVENTFUL NIGHT. HIS IV WAS REPLACED TO HIS LEFT FOREARM/WRIST AREA BECAUSE THE OTHER SITE WAS LEAKING. LAST HEP XA THAT WAS DRAWN WAS IN GOAL AND THE NEXT RECHECK IS 0800. PATIENT HAS NOT REPORTED ANY PAIN FOR THIS NURSE. PATIENT ONLY HAD A VERY SMALL BOWEL MOVEMENT NOTED. CISSE IS IN PLACE AND DRAINING ACCURATELY. PATIENT DENIES ANY OTHER NEEDS. WILL CONTINUE TO MONITOR AND WILL PASS OFF TO DAY SHIFT.
[2020-03-09 07:31] VITALS: BP 175/71; BP 181/73; PULSE 75; TEMP 79.9
[2020-03-09 08:07] LABS: BASO # 0.1 (0.0-0.2); BASO % 0.7 % (0.0-2.0); EOS # 0.7 (0.0-0.7); EOS % 6.9 % (0-4.0); GRAN # 6.4 (1.4-6.5); GRAN % 63.6 % (42.2-75.2); LYMPH # 1.7 (1.2-3.4); LYMPH % 16.4 % (20.0-51.0); MEAN CELL VOLUME 86 fl (80.0-100.0); MEAN CORPUSCULAR HGB CONC 34 g/dl (33.0-37.0); MONO # 1.2 (0.1-0.6); MONO % 12.1 % (1.7-9.3); PLATELET COUNT 229 K/mm3 (130-400); RED BLOOD COUNT 3.23 M/mm3 (4.20-5.60); REDCELL DISTRIBUTION WIDTH-CV 15.6 % (11.5-14.5)
[2020-03-09 08:08] LABS: HEMATOCRIT 27.8 % (42.0-52.0); HEMOGLOBIN 9.4 g/dl (13.5-18.0); MEAN CORPUSCULAR HEMOGLOBIN 29 pg (27.0-31.0)
[2020-03-09 08:16] LABS: ALBUMIN 2.9 gm/dL (3.5-5.0); BILIRUBIN,TOTAL 0.4 mg/dL (0.0-1.0); CALCIUM 8.2 mg/dL (8.4-10.2); CREATININE, serum 1.61 (0.66-1.25); MAGNESIUM 1.9 mg/dL (1.6-2.3); PHOSPHOROUS 3.9 mg/dL (2.5-4.5); POTASSIUM 3.9 mmol/L (3.4-5.0); TOTAL PROTEIN 5.6 gm/dL (6.4-8.2)
--- NOTE | 2020-03-09 08:45 | NUR ---
VITALS REVIEWED, MEDICATIONS GIVEN, ASSESSMENT PERFORMED, PT REPORTS A COLD CHILL, WARM BLANKETS BROUGHT IN, PT DENIES PAIN OR DISCOMFORT AT THIS TIME. FRESH COFFEE BROUGHT IN FOR PT. PT IV PATENT AND NO R/D/E. NO OTHER NEEDS AT THIS TIME.
[2020-03-09 11:43] VITALS: BP 133/68; PULSE 75; TEMP 97.4
[2020-03-09 15:41] VITALS: BP 149/65; PULSE 72; TEMP 98.6
--- NOTE | 2020-03-09 17:32 | NUR ---
PT PLEASANT, AOX4, IV HEPARIN AND FLUIDS DISCONTINUED, NO COMPLAINTS OF PAIN OR DISCOMFORT, REFUSED SUPPOSITORY THIS MORNING. NO OTHER NEEDS AT THIS TIME. UNEVENTFUL SHIFT OVERALL.
[2020-03-09 19:53] VITALS: BP 167/74; PULSE 71; TEMP 97.8
--- NOTE | 2020-03-09 20:45 | NUR ---
Assessment complete. Up in recliner, watching television, conversant. Reports generalized pain/discomfort. Pain medication provided per request. Dnies other needs at this time.
[2020-03-10] VITALS (7 sets, daily range): BP systolic 136–171; BP diastolic 56–76; PULSE 66–76; TEMP 97.7–98.5
[2020-03-10 06:14] LABS: BASO # 0.1 (0.0-0.2); BASO % 0.5 % (0.0-2.0); EOS # 0.5 (0.0-0.7); EOS % 5.3 % (0-4.0); GRAN % 68.1 % (42.2-75.2); LYMPH # 1.3 (1.2-3.4); LYMPH % 12.8 % (20.0-51.0); MEAN CELL VOLUME 86 fl (80.0-100.0); MEAN CORPUSCULAR HGB CONC 33 g/dl (33.0-37.0); MONO # 1.3 (0.1-0.6); PLATELET COUNT 241 K/mm3 (130-400); RED BLOOD COUNT 3.35 M/mm3 (4.20-5.60); REDCELL DISTRIBUTION WIDTH-CV 15.8 % (11.5-14.5)
[2020-03-10 06:17] LABS: HEMATOCRIT 28.9 % (42.0-52.0); HEMOGLOBIN 9.5 g/dl (13.5-18.0); MEAN CORPUSCULAR HEMOGLOBIN 28 pg (27.0-31.0)
[2020-03-10 06:22] LABS: ALBUMIN 3.1 gm/dL (3.5-5.0); BILIRUBIN,TOTAL 0.4 mg/dL (0.0-1.0); CALCIUM 8.3 mg/dL (8.4-10.2); CREATININE, serum 1.55 (0.66-1.25); MAGNESIUM 1.9 mg/dL (1.6-2.3); PHOSPHOROUS 3.6 mg/dL (2.5-4.5); TOTAL PROTEIN 5.8 gm/dL (6.4-8.2)
--- NOTE | 2020-03-10 08:45 | NUR ---
PT PLEASANT, AOX4, REPORTS PAIN 9/10 IN ABD, NO BM LAST NIGHT, PT TOO SUPPOSITORY THIS MORNING ALONG WITH OTHER REGIMINE TO STIMULATE BM. PT VITALS REVIEWED, BS TAKEN, MEDS GIVEN, ASSESSMENT PERFORMED. NO OTHER NEEDS AT THIS TIME.
--- NOTE | 2020-03-10 17:14 | NUR ---
PT HAD MEDIUM SOFT FORMED BM TODAY. PT COMPLIANT WITH LAXATIVES, STOOL SOFTENERS, AND SUPPOSITORIES, ABD PAIN REPORTED ALL DAY BUT PT REFUSED PAIN MEDICATION. PT AOX4, RUBINA BROUGHT IN FOR PT. PT PLEASANT, CISSE EMPTIED OF CLEAR YELLOW URINE. MEDICATIONS GIVEN, VITALS REMAIN STABLE. NO OTHER NEEDS AT THIS TIME.
--- NOTE | 2020-03-10 20:30 | NUR ---
Pt assessment completed and documented. Pt sitting up in chair watching television. States he is having 7/10 abdominal pain and is requesting PRN pain medication at this time. INT to left wrist free of complications. Sorenson to dependent drainage with clear, yellow urine. Pt denies any other needs at this time. Call light within reach. Will conitnue to monitor.
[2020-03-11 03:43] VITALS: BP 153/69; PULSE 63; TEMP 97.7
--- NOTE | 2020-03-11 05:11 | NUR ---
Pt had uneventful shift. Pt rested well overnight. Pt was able to have a medium, soft BM earlier this morning after scheduled suppository was given. PRN norco given x1 per pt request for abdominal pain. INT to left wrist CDI. Sorenson catheter to dependent drainage with clear, yellow urine. Pt denies any other needs. Call light within reach.
--- NOTE | 2020-03-11 06:45 | NUR ---
Bedside shift report received from HERNAN Dalal. PT in bed resting, denies needs, will continue to monitor.
[2020-03-11 07:19] LABS: BASO # 0.1 (0.0-0.2); BASO % 0.6 % (0.0-2.0); EOS # 0.5 (0.0-0.7); EOS % 5.5 % (0-4.0); GRAN # 6.2 (1.4-6.5); GRAN % 62.8 % (42.2-75.2); LYMPH # 1.7 (1.2-3.4); LYMPH % 17.5 % (20.0-51.0); MEAN CELL VOLUME 87 fl (80.0-100.0); MEAN CORPUSCULAR HGB CONC 32 g/dl (33.0-37.0); MEAN PLATELET VOLUME 10.2 fl (7.4-10.4); MONO # 1.3 (0.1-0.6); MONO % 13.3 % (1.7-9.3); PLATELET COUNT 250 K/mm3 (130-400); RED BLOOD COUNT 3.38 M/mm3 (4.20-5.60); REDCELL DISTRIBUTION WIDTH-CV 15.8 % (11.5-14.5)
[2020-03-11 07:24] LABS: HEMATOCRIT 29.3 % (42.0-52.0); HEMOGLOBIN 9.5 g/dl (13.5-18.0); MEAN CORPUSCULAR HEMOGLOBIN 28 pg (27.0-31.0)
[2020-03-11 07:27] VITALS: BP 156/76; PULSE 65; TEMP 97.8
[2020-03-11 07:28] LABS: CALCIUM 8.2 mg/dL (8.4-10.2); CREATININE, serum 1.69 (0.66-1.25); MAGNESIUM 1.9 mg/dL (1.6-2.3); POTASSIUM 3.9 mmol/L (3.4-5.0)
--- NOTE | 2020-03-11 08:19 | NUR ---
Assessment charted. PT resting in bed, able to get up to chair with pivot independently when set up assistance. Sorenson draining clear yellow urine. Pt refusing bowel regimen this am, states he feels he is getting back on track. Resting in chair eating breakfast, denies pain or other needs, will continue to monitor.
[2020-03-11] MEDS ORDERED: FLOMAX 0.40.4 MG/CAP PO (09:33)
[2020-03-11] MEDS ORDERED: NORVASC 10MG10 MG PO (09:33)
[2020-03-11] MEDS ORDERED: DEMADEX 20MG20 M1 PO (09:34)
[2020-03-11] MEDS ORDERED: PRINIVIL20 MG PO (09:34)
[2020-03-11] MEDS ORDERED: PROBIOTIC ACID1 EAC3 PO (09:36)
[2020-03-11] MEDS ORDERED: SENNA-S 50 MG-81 TAB PO (09:38)
[2020-03-11] MEDS ORDERED: LEADER CLE17 GM/Dose PO (09:39)
[2020-03-11] MEDS ORDERED: PROSCAR 5MG5 MG PO (09:39)
--- NOTE | 2020-03-11 11:06 | NUR ---
Heater Room Helper attended clinical rounds with the team and patient to discharge today. SW followed up with patient who reports he is ready to get home. Patient states he has arrangements for transportation home. LESLEY read IM aloud to patient who verbalized understanding and gave SW permission to sign on his behalf. LESLEY placed form in chart and provided copy to patient. LESLEY faxed discharge orders to Payton at [facility] for PT/OT/Nursing and left Payton a message. LESLEY contacted patient's , Angela to provide update. No additional needs at this time.
--- NOTE | 2020-03-11 11:48 | NUR ---
Discharge teachign ocmpleted at this time. INT dc'd, tip intact. Returned pts meds to them from pharmacy. Sent home with supplies: leg bag, extra large catheter bag, graduated cylindar, alcohol wipes, extra catheter tip cap. Reviewed discharge packet, new meds, f/u appointmetns, scripts sent to pharmacy. Answered all questions. In own clothes, has all belongings, will be escorted out by medical staff when ride is here, criteria met.
== END 2020-03-11 13:15 | disposition home or self-care (01) | DRG 693 ==
LOC: MEDICAL 08:49
PROVIDERS: Family Medicine; Nurse Practitioner Family; Physician Assistant; Urology; ADMIT Hospitalist
PROC: 0TCB8ZZ Extirpation of Matter from Bladder, Via Natural or Artificial Opening Endoscopic (ICD-10-PCS; principal; 2020-03-02 08:00)
DX: N13.30 Unspecified hydronephrosis (principal); K85.90 Acute pancreatitis without necrosis or infection, unspecified; I16.1 Hypertensive emergency; E87.2 Acidosis; K56.7 Ileus, unspecified; K56.600 Partial intestinal obstruction, unspecified as to cause; N17.9 Acute kidney failure, unspecified; N32.0 Bladder-neck obstruction; R33.9 Retention of urine, unspecified; E11.65 Type 2 diabetes mellitus with hyperglycemia; E11.42 Type 2 diabetes mellitus with diabetic polyneuropathy; E11.51 Type 2 diabetes mellitus with diabetic peripheral angiopathy without gangrene; E11.22 Type 2 diabetes mellitus with diabetic chronic kidney disease; N40.0 Benign prostatic hyperplasia without lower urinary tract symptoms; K59.00 Constipation, unspecified; N18.9 Chronic kidney disease, unspecified; K21.9 Gastro-esophageal reflux disease without esophagitis; K29.70 Gastritis, unspecified, without bleeding; I25.10 Atherosclerotic heart disease of native coronary artery without angina pectoris; I25.2 Old myocardial infarction; I10 Essential (primary) hypertension; E78.5 Hyperlipidemia, unspecified; F17.210 Nicotine dependence, cigarettes, uncomplicated; Z79.4 Long term (current) use of insulin; Z79.82 Long term (current) use of aspirin; Z79.891 Long term (current) use of opiate analgesic; Z95.5 Presence of coronary angioplasty implant and graft; Z86.73 Personal history of transient ischemic attack (TIA), and cerebral infarction without residual deficits; Z89.511 Acquired absence of right leg below knee
CPT/HCPCS: 99223-AI; 99232-AI; 99233-AI; 99239; A4314; C1769; J0360; J0690; J1170; J1644; J1815; J2212; J2405; J2550; J2704; J3010; J7030; J7040; J7120; Q9967

== ENCOUNTER → 2020-06-07 | Outpatient (CLI) | payer MEDICARE ==
[~2020-06-07] MED LIST changes: +DEMADEX 20MG20 M1 PO; +ELIQUIS 5MG PO; +FLOMAX 0.40.4 MG/CAP PO; +K-DUR 10 MEQ T10 MEQ PO; +LEADER CLE17 GM/Dose PO; +NORVASC 5MG5 MG/TAB PO; +PROBIOTIC GOLD1 EACH PO; +PROSCAR 5MG5 MG PO; +SENNA-S 50 MG-81 TAB PO; +STOOL SOFTENER100 M2 PO
== END ==
LOC: COL.RAD 10:53
DX: J90 Pleural effusion, not elsewhere classified (principal)

== ENCOUNTER 2021-04-01 16:30 | Inpatient (IN) | payer MEDICARE, MEDICAID ==
[~2021-04-01] VITALS: Ht 167.6 cm; Wt 98.7 kg
[2021-04-01 16:15] VITALS: BP 137/66; PULSE 89
[2021-04-01 16:30] VITALS: BP 106/49; PULSE 80
[2021-04-01 16:45] VITALS: BP 131/47; PULSE 66
[2021-04-01 17:00] VITALS: BP 127/82; PULSE 91
--- NOTE | 2021-04-01 17:00 | NUR ---
[facility] CALL[facility] ASKING "CAN YOU READ ME THE UNIT NUMBER THE PT RECIEVED". BLOOD UNIT READ BACK TO ADRIANA FROM [facility], ADRIANA STATED "THAT IS AN INCOMPATIBLE UNIT FOR THE PATIENT". NO OTHER INSTRUCTIONS GIVEN FROM FACILITY, CALLED SENIOR JAVA WEB APPLICATION DEVELOPER, UNIT OF BLOOD HAD PREVIOUSLY FINISHED AND I PLACED IN BIOHAZARD BAG AND SENT TO LAB. DR. PADILLA NOTIFIED AND LABS ORDERED ALONG WITH OTHER ADMISSION ORDERS.
[2021-04-01 17:15] VITALS: BP 132/55; PULSE 88
--- NOTE | 2021-04-01 17:47 | NUR ---
PT ARRIVED TO FLOOR AT 1600, ACCORDING TO EMS BLOOD STARTED INFUSING AT 1440. BLOOD FINISHED INFUSING AT 1625. ADMISSION COMPLETED. DR. PADILLA CALLED FOR ORDERS, ORDERS PLACED PER CALL. DR. CALL SAW PT ON RELTO, CANNOT SCOPE UNTIL WEDNESDAY.
[2021-04-01] MEDS ORDERED: BUMEX 1MG TA1 MG/TA1 PO (18:12)
[2021-04-01] MEDS ORDERED: LANTUS100 U/ML SQ (18:15)
[2021-04-01] MEDS ORDERED: LYRICA 75MG CAP75 MG PO (18:17)
[2021-04-01] MEDS ORDERED: ZEMPLAR1 MCG PO (18:18)
[2021-04-01] MEDS ORDERED: REGLAN 10MG10 MG/TAB PO (18:21)
[2021-04-01] MEDS ORDERED: PHENERGAN 25 TA25 MG PO (18:21)
[2021-04-01] MEDS ORDERED: XARELTO2.5 MG PO (18:22)
[2021-04-01] MEDS ORDERED: ULTRAM 50MG TAB50 MG PO (18:22)
[2021-04-01] MEDS ORDERED: IPRATROPIUM BROM3 M1 IH (18:23)
[2021-04-01] MEDS ORDERED: NESINA6.25 PO (18:24)
[2021-04-01] MEDS ORDERED: AMITRIPTYLINE H25 M1 PO (18:24)
[2021-04-01] MEDS ORDERED: EPOGEN4000 U/ML (18:25)
[2021-04-01] MEDS ORDERED: FOLIC ACID 11 MG/TA1 PO (18:26)
[2021-04-01] MEDS ORDERED: HUMALOG100 U/ML SQ (18:27)
[2021-04-01] MEDS ORDERED: ONE-A-DAY ESSE1 EACH PO (18:27)
[2021-04-01] MEDS ORDERED: ZYPREXA 5MG5 MG PO (18:28)
--- NOTE | 2021-04-01 18:39 | NUR ---
DR. PADILLA NOTIFIED OF THE "INCOMPATIBLE UNIT" ACTUALLY BEING A "COMPATIBLE UNIT, JUST THE WRONG UNIT" ACCORDING TO LAB.
[2021-04-01 19:24] LABS: BASO % 0.5 % (0.0-2.0); EOS # 0.2 (0.0-0.7); EOS % 2.4 % (0-4.0); GRAN # 6.2 (1.4-6.5); GRAN % 70.4 % (42.2-75.2); LYMPH # 1.1 (1.2-3.4); LYMPH % 12.7 % (20.0-51.0); MEAN CELL VOLUME 92 fl (80.0-100.0); MEAN CORPUSCULAR HGB CONC 31 g/dl (33.0-37.0); MEAN PLATELET VOLUME 9.5 fl (7.4-10.4); MONO # 1.2 (0.1-0.6); MONO % 13.4 % (1.7-9.3); PLATELET COUNT 295 K/mm3 (130-400); RED BLOOD COUNT 1.99 M/mm3 (4.20-5.60); REDCELL DISTRIBUTION WIDTH-CV 20.8 % (11.5-14.5)
[2021-04-01 19:32] LABS: HEMATOCRIT 18.2 % (42.0-52.0); HEMOGLOBIN 5.6 g/dl (13.5-18.0); MEAN CORPUSCULAR HEMOGLOBIN 28 pg (27.0-31.0)
[2021-04-01 19:37] LABS: CALCIUM 8.3 mg/dL (8.4-10.2); CREATININE, serum 3.22 (0.66-1.25)
[2021-04-01 19:44] VITALS: BP 118/53; PULSE 88; TEMP 97.9
[2021-04-01 20:06] LABS: LACTATE DEHYDROGENASE 646 U/L (313-618)
--- NOTE | 2021-04-01 21:29 | NUR ---
PT RESTING IN BED. PT DIFFICULT TO AROUSE, PT IS VERY DROWSY. PT LUNGS AUSCULTATED WITH COARSE CRACKLES. 3+ EDEMA NOTED TO ALL EXTREMITIES. PT APPEARS VERY PALE. PT DENIES ANY NEEDS AT THIS TIME. WILL CONTINUE TO MONITOR.
[2021-04-02] VITALS (15 sets, daily range): BP systolic 103–135; BP diastolic 39–84; PULSE 73–89; TEMP 97.5–98.4
--- NOTE | 2021-04-02 00:13 | NUR ---
DR PADILLA CONTACTED DUE TO CONFUSION ABOUT WHEN TO INITIATE BLOOD TRANSFUSION. WAS TOLD IT WILL BE STARTED 04/02 AT 1200. THIS NURSE NOTIFIED VALERIE THAT HE HAD PUT IN AN ORDER FOR A L ARM RESTRICT AFTER TWO IVS HAD BEEN PLACED TO THE L ARM UPON ADMISSION. WAS INSTRUCTED TO LEAVE IVS IN AND USE THEM NORMAL.
--- NOTE | 2021-04-02 06:43 | NUR ---
PT HAD A RESTFUL EVENING. MORNING MEDICATIONS GIVEN. PT DENIES ANY NEEDS AT THIS TIME.
[2021-04-02 07:09] LABS: BASO % 0.5 % (0.0-2.0); EOS # 0.3 (0.0-0.7); EOS % 4.2 % (0-4.0); GRAN # 5.6 (1.4-6.5); GRAN % 70.9 % (42.2-75.2); LYMPH # 0.8 (1.2-3.4); LYMPH % 10.5 % (20.0-51.0); MEAN CORPUSCULAR HGB CONC 29 g/dl (33.0-37.0); MEAN PLATELET VOLUME 9.7 fl (7.4-10.4); MONO # 1.1 (0.1-0.6); MONO % 13.3 % (1.7-9.3); PLATELET COUNT 286 K/mm3 (130-400); RED BLOOD COUNT 1.79 M/mm3 (4.20-5.60); REDCELL DISTRIBUTION WIDTH-CV 22.2 % (11.5-14.5)
[2021-04-02 07:15] LABS: HEMATOCRIT 17.5 % (42.0-52.0); HEMOGLOBIN 5.1 g/dl (13.5-18.0); MEAN CELL VOLUME 98 fl (80.0-100.0); MEAN CORPUSCULAR HEMOGLOBIN 28 pg (27.0-31.0)
[2021-04-02 07:16] LABS: ALBUMIN 2.5 gm/dL (3.5-5.0); CALCIUM 7.9 mg/dL (8.4-10.2); CREATININE, serum 3.29 (0.66-1.25); PHOSPHOROUS 4.8 mg/dL (2.5-4.5)
--- NOTE | 2021-04-02 09:15 | NUR ---
PT PLEASANT, AOX4, REPORTS NEUROPATHY PAIN AT BASELINE, PT HAS COUGH, MEDICATIONS GIVEN, ASSESSMENT PERFORMED, VITALS REVIEWED, NO OTHER NEEDS
--- NOTE | 2021-04-02 10:51 | NUR ---
EDUCATED PT ON BLOOD TRANSFUSION REACTIONS SYMPTOMS AND DENIES QUESTIONS AT THIS TIME. VITALS OBTAINED, INFUSION VERIFED WITH HERNAN PACHECO AND INFUSION STARTED.
--- NOTE | 2021-04-02 12:11 | NUR ---
NONSELECT TRAY ORDERED FOR PT
--- NOTE | 2021-04-02 13:15 | NUR ---
PT R HAND EDEMETOUS 2+. BLOOD INFUSING INTO LUE. 2ND UNIT OF BLOOD VERIFIED BY HERNAN MENARD. BLOOD TRANSFUSION INFUSING
--- NOTE | 2021-04-02 13:35 | NUR ---
NO COMPLICATIONS WITH PT FIRST 15 MIN OF BLOOD TRANSFUSION.
[2021-04-02 15:34] LABS: COLLECTION METHOD CLEAN CATCH
[2021-04-02 15:52] LABS: PH 5 (5-8); SQUAMOUS EPITHELIAL 0-2 /hpf; URINE APPEARANCE Clear; URINE BACTERIA None Seen /hpf; URINE BILIRUBIN Negative (NEGATIVE); URINE BLOOD Negative (NEGATIVE); URINE COLOR Yellow; URINE GLUCOSE 2+ (NEGATIVE); URINE KETONE Negative (NEGATIVE); URINE LEUKOCYTE ESTERASE Negative (NEGATIVE); URINE NITRATE Negative (NEGATIVE); URINE PROTEIN(semi-quant) 2+ (NEGATIVE); URINE RBC 0-2 /hpf; URINE UROBILINOGEN Negative (NEGATIVE); URINE WBC 0-2 /hpf
--- NOTE | 2021-04-02 18:36 | NUR ---
PT RECIEVED 2 UNITS OF BLOOD, WILL RECHECK H&H IN AM, WILL CALL [facility] AT 1900 WITH OUTPUT REQUESTED. PT PLEASANT, EATING WELL, NO OTHER NEEDS
--- NOTE | 2021-04-02 18:49 | NUR ---
DR. PADILLA NOTFIED OF OUTPUT SINCE BUMEX GIVEN, ORDERED TO START BUMEX 0.5MG/HR.
--- NOTE | 2021-04-02 23:08 | NUR ---
PT RESTING IN BED. EVENING MEDICATIONS GIVEN. BUMEX DRIP STARTED AT 5MLS/HR. PT HAS 3+ PITTING EDEMA NOTED TO L LOWER EXTREMITY, AND 2+ EDEMA NOTED TO BUE. PT STATES HE IS HAVING SOME INTERMITTEN MIDSTERNAL PAIN. LUNGS AUSCULTATED WITH COARSE CRACKLES AND WHEEZING. DENIES ANY NEEDS AT THIS TIME. WILL CONINUE TO MONITOR.
[2021-04-03 00:21] VITALS: BP 133/58; PULSE 86; TEMP 97.8
[2021-04-03 04:21] VITALS: BP 137/60; PULSE 85; TEMP 97.7
--- NOTE | 2021-04-03 07:16 | NUR ---
RECEIVED REPORT FROM HERNAN PARSON. PT AWAKE, ALERT/ORIENT X4. DENIES PAIN. REQUESTED JELLO; NO OTHER NEEDS AT THIS TIME. CALL CHONG IN REACH.
[2021-04-03 07:17] LABS: BASO # 0.1 (0.0-0.2); BASO % 0.5 % (0.0-2.0); EOS # 0.5 (0.0-0.7); GRAN # 7.8 (1.4-6.5); GRAN % 72.8 % (42.2-75.2); LYMPH # 0.9 (1.2-3.4); LYMPH % 8.4 % (20.0-51.0); MEAN CELL VOLUME 95 fl (80.0-100.0); MEAN CORPUSCULAR HGB CONC 30 g/dl (33.0-37.0); MEAN PLATELET VOLUME 9.6 fl (7.4-10.4); MONO # 1.4 (0.1-0.6); MONO % 12.7 % (1.7-9.3); PLATELET COUNT 276 K/mm3 (130-400); RED BLOOD COUNT 2.63 M/mm3 (4.20-5.60); REDCELL DISTRIBUTION WIDTH-CV 19.8 % (11.5-14.5)
[2021-04-03 07:24] LABS: ALBUMIN 2.8 gm/dL (3.5-5.0); CALCIUM 8.2 mg/dL (8.4-10.2); CREATININE, serum 3.21 (0.66-1.25); POTASSIUM 3.5 mmol/L (3.4-5.0)
[2021-04-03 07:25] LABS: HEMOGLOBIN 7.6 g/dl (13.5-18.0); MEAN CORPUSCULAR HEMOGLOBIN 29 pg (27.0-31.0)
--- NOTE | 2021-04-03 08:27 | NUR ---
Met with patient yesterday to discuss discharge plans. Patient states he is blind and has been at [facility] in [place] for skilled rehab following an admission at [facility] for about 3 weeks. Patient states he usually lives in a ground floor apartment with his , Angela Peter #[phone] in [place]. 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 Patient states he only has stairs if he goes to a different unit but really doesn't because he doesn't manage them well. Patient has a prosthetic R) leg, uses a glucometer, is learning to use a walker, and also has a hospital bed and wheelchair/electric scooter. Home health services are provided by [facility]. [facility] and [facility]. [facility] [place], #[phone]. If the [facility] doesn't provide medications, patient prefers to use [facility] in [place] as a pharmacy. The patient plans to discharge back to [place] to complete his rehab and then home with his . Discharge plan: SNF with [facility] in [place]
--- NOTE | 2021-04-03 08:47 | NUR ---
bridge worker apprentice met with genevieve to discuss discharge planning. Patient states he lives with his disabled and disabled son. 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 Patient has a power wheelchair for community mobilization and a hospital bed and walker at home. Patient was currently in [facility] for rehab and will continue that rehab upon discharge. Worker contacted Josselin at [facility] and she confirmed patient can return upon discharge, however, if patient will need dialysis this may hamper his ability to return. Currently patient is not receiving dialysis. Patient is scheduled for a colonoscopy on Wednesday. Patient's primary care provider is Dr Gardner and patient also receives care and medications from [facility] [place]. Return to skilled care at [facility].
[2021-04-03 09:03] VITALS: BP 120/63; PULSE 68; TEMP 98
--- NOTE | 2021-04-03 11:31 | NUR ---
PT SIGNED CONSENT FOR GI ENDOSCOPY AND COLONOSCOPY. QUESTIONS INVITED AND ANSWERED
[2021-04-03 13:02] VITALS: BP 143/56; PULSE 76; TEMP 98.1
[2021-04-03 16:59] VITALS: BP 120/49; PULSE 67; TEMP 97.6
--- NOTE | 2021-04-03 18:42 | NUR ---
PT HAD UNREMARKABLE DAY. STARTED ON PREP FOR UPPER GI ENDOSCOPY/COLONOSCOPY TOMORROW. PATIENT DENIES PAIN. NO OTHER REQEUSTS AT THIS TIME. CALL CHONG IN REACH.
[2021-04-03 20:18] VITALS: BP 147/64; PULSE 79; TEMP 97.6
[2021-04-04] VITALS (12 sets, daily range): BP systolic 90–156; BP diastolic 57–82; PULSE 77–88; TEMP 97.4–98
--- NOTE | 2021-04-04 00:38 | NUR ---
THIS RN NOTED LOW SPO2 AT 91%. RECHECKED AT THIS TIME, 94% ON ROOM AIR.
--- NOTE | 2021-04-04 00:42 | NUR ---
THIS RN NOTED THAT SBP HAD DROPPED TO 90 IN 0000 VS. RECHECKED AT THIS TIME. BP 133/60.
--- NOTE | 2021-04-04 05:18 | NUR ---
PT PROGRESSING WITH PLAN OF CARE. PT COMPLETED BOWEL PREP AND MAINTAINED NPO STATUS AFTER MIDNIGHT. PT ABLE TO UTILIZE BEDSIDE COMMODE. BOWEL MOVEMENTS LARGE, LIQUID, STILL DARK IN COLOR. PT CONTINUING TO COMPLAIN OF LEFT LEG PAIN. WILL PASS ON TO DAY SHIFT. PT FREE FROM INJURY THIS SHIFT.
--- NOTE | 2021-04-04 06:09 | NUR ---
DISCUSSED WITH FINANCIAL SERVICE REPRESENTATIVE, PT HAD LARGE BOUT OF URINE INCONTINENCE AT BEGINNING OF SHIFT, UNABLE TO RECORD NUMERIC VALUE.
--- NOTE | 2021-04-04 07:18 | NUR ---
RECEIVED REPORT FROM HERNAN GARZA. PT AWAKE/ALERT; RESTING IN BED. DENIES ANY PAIN. PT HAS NO OTHER NEEDS AT THIS TIME. CALL CHONG IN REACH.
[2021-04-04 07:59] LABS: BASO % 0.5 % (0.0-2.0); EOS # 0.5 (0.0-0.7); GRAN # 6.4 (1.4-6.5); GRAN % 73.1 % (42.2-75.2); LYMPH # 0.7 (1.2-3.4); LYMPH % 7.6 % (20.0-51.0); MEAN CELL VOLUME 94 fl (80.0-100.0); MEAN CORPUSCULAR HGB CONC 31 g/dl (33.0-37.0); MEAN PLATELET VOLUME 9.7 fl (7.4-10.4); MONO # 1.1 (0.1-0.6); MONO % 12.5 % (1.7-9.3); PLATELET COUNT 299 K/mm3 (130-400); RED BLOOD COUNT 2.68 M/mm3 (4.20-5.60); REDCELL DISTRIBUTION WIDTH-CV 19.5 % (11.5-14.5)
[2021-04-04 08:01] LABS: ALBUMIN 2.7 gm/dL (3.5-5.0); CALCIUM 7.8 mg/dL (8.4-10.2); CREATININE, serum 3.03 (0.66-1.25); PHOSPHOROUS 4.8 mg/dL (2.5-4.5); POTASSIUM 3.8 mmol/L (3.4-5.0)
[2021-04-04 08:11] LABS: HEMATOCRIT 25.1 % (42.0-52.0); HEMOGLOBIN 7.8 g/dl (13.5-18.0); MEAN CORPUSCULAR HEMOGLOBIN 29 pg (27.0-31.0)
--- NOTE | 2021-04-04 08:13 | NUR ---
Received report from [facility] shift nurse w/day nurse Mimi. Discussed plan of care to Mimi re: medication administration; shift, fall and pain assessment
--- NOTE | 2021-04-04 09:16 | NUR ---
ADMINISTERED PT MEDS W/SMALL SIPS OF WATER
--- NOTE | 2021-04-04 10:12 | NUR ---
ASSESSMENT MADE BY STUDENT NURSE. ASSESSMENT AGREED ON BY HERNAN BONILLA. NO CHANGES TO BE MADE
--- NOTE | 2021-04-04 12:23 | NUR ---
PT WENT DOWN FOR COLONOSCOPY/ENDOSCOPY
--- NOTE | 2021-04-04 13:10 | NUR ---
The patient had an EGD and colonscopy today. SW faxed updates to [facility]. *Discharge plan: [facility]*
--- NOTE | 2021-04-04 14:04 | NUR ---
Primary nurse was assisted with [phone] [facility] student Nadine Hamm and [facility] instructor Lainey Agudelo MSN, RN
--- NOTE | 2021-04-04 14:46 | NUR ---
Dr. Morrison notified SW that he is ready to d/c the patient. SW notified at [facility]. reports that they are not able to take the patient back today, but can tomorrow and will have their transportation pick him up at 0800. SW notified Dr. Morrison and the patient's RN. SW contacted and updated his , Angela. Angela is in agreement to the plan. LESLEY read the IM form outloud to Angela. Angela verbalized understanding and gave SW approval to sign the form on his behalf. SW to continue to follow.
--- NOTE | 2021-04-04 17:48 | NUR ---
PT WENT TO COLONOSCOPY/ENDOSCOPY TODAY. OTHERWISE, UNEVENTFUL DAY. PT DENIES PAIN. CALL CHONG IN REACH. NO NEEDS/QUESTIONS AT THIS TIME
[2021-04-05 00:36] VITALS: BP 134/55; PULSE 77; TEMP 98.2
[2021-04-05 04:01] VITALS: BP 155/62; PULSE 85; TEMP 97.6
--- NOTE | 2021-04-05 05:18 | NUR ---
PT HAD UNEVENTFUL NIGHT, BUMEX INFUSING AT 5ML/HR. DRESSINGS CHANGED ON PT. FABIAN JOLLEY ON.I&O NOTED AND RECORDED. PT EXPRESSES NO ADDITONAL NEEDS. ALL NEEDS MET.
[2021-04-05 07:05] LABS: BASO % 0.5 % (0.0-2.0); EOS # 0.4 (0.0-0.7); EOS % 5.7 % (0-4.0); GRAN # 5.5 (1.4-6.5); GRAN % 72.1 % (42.2-75.2); LYMPH # 0.7 (1.2-3.4); LYMPH % 8.7 % (20.0-51.0); MEAN CELL VOLUME 93 fl (80.0-100.0); MEAN CORPUSCULAR HGB CONC 31 g/dl (33.0-37.0); MEAN PLATELET VOLUME 9.4 fl (7.4-10.4); MONO % 12.9 % (1.7-9.3); PLATELET COUNT 337 K/mm3 (130-400); RED BLOOD COUNT 2.99 M/mm3 (4.20-5.60); REDCELL DISTRIBUTION WIDTH-CV 19.2 % (11.5-14.5)
[2021-04-05 07:13] LABS: ALBUMIN 3.1 gm/dL (3.5-5.0); CALCIUM 8.1 mg/dL (8.4-10.2); CREATININE, serum 2.95 (0.66-1.25); PHOSPHOROUS 5.1 mg/dL (2.5-4.5); POTASSIUM 3.8 mmol/L (3.4-5.0)
[2021-04-05 07:18] LABS: HEMATOCRIT 27.9 % (42.0-52.0); HEMOGLOBIN 8.7 g/dl (13.5-18.0); MEAN CORPUSCULAR HEMOGLOBIN 29 pg (27.0-31.0)
[2021-04-05 07:31] VITALS: BP 155/62; PULSE 85; TEMP 97.6
[2021-04-05 08:00] VITALS: BP 162/67; PULSE 86; TEMP 98.1
--- NOTE | 2021-04-05 08:00 | NUR ---
Assessment completed, alert/oriented, vital signs stable, patient reports feeling better and denies any pain or discomfort, hemaglobin 8.7 this mroning, denies any further bloody stools, heart RRR/ distal pulses are palpable, lungS CTA/ no resp.difficulty noted, I have spoke with and confirmed discharge/ and he will place those orders, blood sugar controlled and patient has ate breakfast and morning meds given, denies needs other needs at this time
--- NOTE | 2021-04-05 10:00 | NUR ---
Patient is discharging back to [facility] nursing today, I have called and given report to recieving nurse Nestor, IV removed and patient leaving with [facility] transporation personel at this time
== END 2021-04-05 10:50 | DRG 378 ==
LOC: MEDICAL 16:30
PROVIDERS: Internal Medicine Gastroenterology; ADMIT Internal Medicine Nephrology
PROC: 0DJ08ZZ Inspection of Upper Intestinal Tract, Via Natural or Artificial Opening Endoscopic (ICD-10-PCS; principal; 2021-04-04 12:00)
DX: K26.4 Chronic or unspecified duodenal ulcer with hemorrhage (principal); N18.4 Chronic kidney disease, stage 4 (severe); I12.9 Hypertensive chronic kidney disease with stage 1 through stage 4 chronic kidney disease, or unspecified chronic kidney disease; E87.70 Fluid overload, unspecified; D75.89 Other specified diseases of blood and blood-forming organs; E66.9 Obesity, unspecified; M79.652 Pain in left thigh; T80.92XA Unspecified transfusion reaction, initial encounter; Z20.822 Contact with and (suspected) exposure to COVID-19; K63.5 Polyp of colon
CPT/HCPCS: J1815; J2405; J2704; P9016

== ENCOUNTER 2021-05-16 16:49 | Emergency (ER) | payer MEDICARE, MEDICAID ==
[~2021-05-16] VITALS: Ht 170.2 cm; Wt 90.9 kg
[~2021-05-16 16:49] MED LIST changes: +AMITRIPTYLINE H25 M1 PO; +BUMEX 1MG TA1 MG/TA1 PO; +EPOGEN4000 U/ML; +FOLIC ACID 11 MG/TA1 PO; +HUMALOG100 U/ML SQ; +IPRATROPIUM BROM3 M1 IH; +LANTUS100 U/ML SQ; +NESINA6.25 PO; +ONE-A-DAY ESSE1 EACH PO; +PHENERGAN 25 TA25 MG PO; +REGLAN 10MG10 MG/TAB PO; +XARELTO2.5 MG PO; +ZEMPLAR1 MCG PO; +ZYPREXA 5MG5 MG PO
[2021-05-16 17:59] VITALS: TEMP 98.4
[2021-05-16 18:36] LABS: BASO % 0.3 % (0.0-2.0); EOS # 0.4 K/mm3 (0.0-0.7); EOS % 3.8 % (0-4.0); GRAN # 8.5 K/mm3 (1.4-6.5); GRAN % 80.6 % (42.2-75.2); LYMPH # 0.8 K/mm3 (1.2-3.4); LYMPH % 7.3 % (20.0-51.0); MEAN CELL VOLUME 85 fl (80.0-100.0); MEAN CORPUSCULAR HGB CONC 33 g/dl (33.0-37.0); MEAN PLATELET VOLUME 9.3 fl (7.4-10.4); MONO # 0.8 K/mm3 (0.1-0.6); MONO % 7.7 % (1.7-9.3); PLATELET COUNT 171 K/mm3 (130-400); RED BLOOD COUNT 3.35 M/mm3 (4.20-5.60); REDCELL DISTRIBUTION WIDTH-CV 17.7 % (11.5-14.5)
[2021-05-16 18:37] LABS: HEMATOCRIT 28.3 % (42.0-52.0); HEMOGLOBIN 9.2 g/dl (13.5-18.0); MEAN CORPUSCULAR HEMOGLOBIN 27 pg (27.0-31.0)
[2021-05-16 18:55] LABS: ALANINE AMINOTRANSFERASE 11 U/L (0-55); ALBUMIN 2.9 gm/dL (3.4-4.8); ALCOHOL(ethanol),MEDICAL < 10 mg/dL (0-10); ANION GAP 11 mmol/L (7-16); AST,SGOT 16 U/L (5-34); BILIRUBIN,TOTAL 0.7 mg/dL (0.2-1.2); BLOOD UREA NITROGEN 33 mg/dL (8-26); CALCIUM 8.5 mg/dL (8.4-10.2); CARBON DIOXIDE 22 mmol/L (23-31); CHLORIDE 104 mmol/L (98-107); CREATININE, serum 3.43 mg/dL (0.72-1.25); GLUCOSE 247 mg/dL (70-99); LIPASE 152 U/L (8-78); POTASSIUM 4.1 mmol/L (3.5-4.5); SODIUM 137 mmol/L (136-145); TOTAL PROTEIN 5.9 gm/dL (6.2-8.1)
[2021-05-16 19:45] LABS: ALKALINE PHOSPHATASE 113 U/L (50-136)
[2021-05-16 22:56] LABS: COLLECTION METHOD CLEAN CATCH
[2021-05-16 23:02] LABS: MUCOUS Present /lpf; PH 6 (5-8); SQUAMOUS EPITHELIAL 0-2 /hpf; URINE APPEARANCE Clear; URINE BACTERIA Rare /hpf; URINE BILIRUBIN Negative (NEGATIVE); URINE BLOOD Negative (NEGATIVE); URINE COLOR Yellow; URINE GLUCOSE 3+ (NEGATIVE); URINE KETONE Negative (NEGATIVE); URINE LEUKOCYTE ESTERASE Negative (NEGATIVE); URINE NITRATE Negative (NEGATIVE); URINE PROTEIN(semi-quant) 3+ (NEGATIVE); URINE UROBILINOGEN Negative (NEGATIVE)
[2021-05-16 23:19] LABS: TRICYCLIC ANTIDEPRESS URINE NEGATIVE
[2021-05-16] MEDS ORDERED: FLEET MINE1 BOT/133 RC (23:23)
[2021-05-16 23:44] VITALS: BP 147/70; PULSE 78
== END 2021-05-16 23:44 | disposition home or self-care (01) ==
LOC: COL.ER 16:49
PROVIDERS: Physician Assistant
DX: K59.00 Constipation, unspecified (principal); I12.9 Hypertensive chronic kidney disease with stage 1 through stage 4 chronic kidney disease, or unspecified chronic kidney disease; N18.4 Chronic kidney disease, stage 4 (severe); E11.22 Type 2 diabetes mellitus with diabetic chronic kidney disease; I25.10 Atherosclerotic heart disease of native coronary artery without angina pectoris; F32.A Depression, unspecified; E78.5 Hyperlipidemia, unspecified; E11.40 Type 2 diabetes mellitus with diabetic neuropathy, unspecified; F17.210 Nicotine dependence, cigarettes, uncomplicated; Z86.73 Personal history of transient ischemic attack (TIA), and cerebral infarction without residual deficits; Z79.82 Long term (current) use of aspirin; Z79.02 Long term (current) use of antithrombotics/antiplatelets; Z79.4 Long term (current) use of insulin; Z79.899 Other long term (current) drug therapy
CPT/HCPCS: J0360; J1170; J2550; J7030